=== PATIENT | male | born 1985 | race Caucasian/White ===

== ENCOUNTER → 2017-08-16 | Outpatient (CLI) | payer OTHER ==
[2017-08-16 10:57] LABS: EKG EKG PERFORMED
[2017-08-16 11:34] LABS: ALT 83 U/L (21-72); AST 37 U/L (17-59); Alkaline Phosphatase 47 U/L (38-126); Anion Gap 9 mmol/L; Blood Urea Nitrogen 15 mg/dL (9-20); Carbon Dioxide 26 mmol/L (22-30); Chloride 107 mmol/L (98-107); Cholesterol 75 mg/dL (<200); Glucose 91 mg/dL (74-99); HDL Cholesterol 49 mg/dL (40-60); Non-African American GFR(MDRD) >60 (>60 ml/min/1.73 sqM); Potassium 4.6 mmol/L (3.5-5.1); Sodium 142 mmol/L (137-145); Total Bilirubin 0.5 mg/dL (0.2-1.3); Total Protein 6.7 g/dL (6.3-8.2)
[2017-08-16 12:08] LABS: Basophils % (A) 1 %; CH 30.9; CHCM 34.4; Eosinophils # (A) 0.2 k/uL (0-0.7); Eosinophils % (A) 3 %; HCT 45.3 % (39.0-53.0); HDW 2.89; HGB 15.2 gm/dL (13.0-17.5); Luc # (Auto) 0.12; Luc % (Auto) 2; Lymphocytes # (A) 1.4 k/uL (1.0-4.8); Lymphocytes % (A) 27 %; MCH 30.3 pg (25.0-35.0); MCHC 33.6 g/dL (31.0-37.0); MCV 90.2 fL (80.0-100.0); Mean Platelet Volume 6.6; Monocytes # (A) 0.3 k/uL (0-1.0); Monocytes % (A) 6 %; Neutrophils # (A) 3.2 k/uL (1.3-7.7); Neutrophils % (A) 61 %; RBC 5.02 m/uL (4.30-5.90); RDW 13.7 % (11.5-15.5); WBC 5.3 k/uL (3.8-10.6); WBC (Perox) 5.76
[2017-08-16 12:14] LABS: Appearance,Urine Clear (Clear); Bilirubin,Urine Negative (Negative); Glucose,Urine (UA) Negative (Negative); Ketones,Urine Negative (Negative); Leukocyte Esterase,Urine Negative (Negative); Nitrite,Urine Negative (Negative); PH, Urine 5.5 (5.0-8.0); Protein,Urine Negative (Negative); Specific Gravity,Urine 1.019 (1.001-1.035); UA Billing (MACRO vs. MICRO) CHEM; Urobilinogen,Urine <2.0 mg/dL (<2.0)
== END | disposition home or self-care (01) ==
LOC: LABWHC1 10:46
PROVIDERS: ATTEND Psychiatry & Neurology Psychiatry
DX: Z00.00 Encounter for general adult medical examination without abnormal findings (principal); R53.83 Other fatigue; R03.0 Elevated blood-pressure reading, without diagnosis of hypertension
CPT/HCPCS: 36415; 80053; 80061; 81003; 83036; 84443; 85025; 93005

== ENCOUNTER 2017-12-20 22:24 | Emergency (ER) | payer OTHER ==
[2017-12-20 22:29] VITALS: RESP 20
[2017-12-20] MEDS ORDERED: IBUPROFEN 600 MG TAB PO STA (22:46)
[2017-12-20] MEDS ORDERED: ACETAMINOPHEN TAB 500 MG TAB PO STA (22:46)
--- NOTE | 2017-12-20 23:03 | XR ---
EXAMINATION TYPE: XR chest 2V DATE OF EXAM: 12/20/2017 COMPARISON: NONE HISTORY: Difficulty breathing TECHNIQUE: Frontal and lateral views of the chest are obtained. FINDINGS: Heart and mediastinum are normal. Lungs are clear. Diaphragm is normal. Bony thorax is int act. Pulmonary vascularity is normal. IMPRESSION: Normal chest
--- NOTE | 2017-12-20 23:21 | ED ---
General Adult HPI - General Chief complaint: Fever Stated complaint: Cough Time Seen by Provider: 12/20/17 22:49 Source: patient, family, RN notes reviewed, old records reviewed Mode of arrival: ambulatory Limitations: no limitations - History of Present Illness Initial comments: This is a 32-year-old male to the ER for evaluation is patient presents ER for evaluation regarding cough and congestion sore throat fever. Patient has no significant medical history takes no medications. Patient does admit to smoking.Miscarriage shortness of breath. Patient denies sick contacts or travel history. No significant body aches or pains - Related Data Home Medications Medication Instructions Recorded Confirmed Divalproex [Depakote] 250 mg PO TID 12/20/17 12/20/17 QUEtiapine XR [SEROquel XR] 150 mg PO HS 12/20/17 12/20/17 Previous Rx's Medication Instructions Recorded Azithromycin [Zithromax Z-pack] 0 mg PO DIRECTED #1 pack 12/20/17 Benzonatate [Tessalon Perles] 100 mg PO TID PRN #15 capsule 12/20/17 Naproxen [Naprosyn] 500 mg PO Q12HR PRN #30 tab 12/20/17 Allergies Allergy/AdvReac Type Severity Reaction Status Date / Time No Known Allergies Allergy Verified 12/20/17 23:02 Review of Systems ROS Statement: Those systems with pertinent positive or pertinent negative responses have been documented in the HPI. ROS Other: All systems not noted in ROS Statement are negative. Past Medical History Past Medical History: No Reported History History of Any Multi-Drug Resistant Organisms: None Reported Past Surgical History: No Surgical Hx Reported Past Psychological History: Anxiety, Depression, PTSD Smoking Status: Never smoker Past Alcohol Use History: Occasional Past Drug Use History: None Reported General Exam Limitations: no limitations General appearance: alert, in no apparent distress Head exam: Present: atraumatic, normocephalic, normal inspection Eye exam: Present: normal appearance, PERRL, EOMI. Absent: scleral icterus, conjunctival injection, periorbital swelling ENT exam: Present: normal exam, mucous membranes moist Neck exam: Present: normal inspection. Absent: tenderness, meningismus, lymphadenopathy Respiratory exam: Present: normal lung sounds bilaterally. Absent: respiratory distress, wheezes, rales, rhonchi, stridor Cardiovascular Exam: Present: regular rate, normal rhythm, normal heart sounds. Absent: systolic murmur, diastolic murmur, rubs, gallop, clicks GI/Abdominal exam: Present: soft, normal bowel sounds. Absent: distended, tenderness, guarding, rebound, rigid Extremities exam: Present: normal inspection, full ROM, normal capillary refill. Absent: tenderness, pedal edema, joint swelling, calf tenderness Back exam: Present: normal inspection Neurological exam: Present: alert, oriented X3, CN II-XII intact Psychiatric exam: Present: normal affect, normal mood Skin exam: Present: warm, dry, intact, normal color. Absent: rash Course Vital Signs 12/20/17 12/20/17 12/20/17 22:25 23:34 23:43 Temperature 102.7 F H Pulse Rate 105 H 104 H 100 Respiratory 20 Rate Blood Pressure 138/69 O2 Sat by Pulse 97 Oximetry 12/20/17 23:45 Temperature 101.2 F H Pulse Rate 97 Respiratory 20 Rate Blood Pressure 128/66 O2 Sat by Pulse 97 Oximetry Medical Decision Making - Medical Decision Making 32 male the ER for evaluation of fever, positive bronchitis, x-ray negative for pneumonia flu negative. Patient will be given outpatient fever control - Lab Data Lab Results 12/20/17 Range/Units 22:30 Influenza Type A RNA Not Detected (Not Detectd) Influenza Type B (PCR) Not Detected (Not Detectd) - Radiology Data Radiology results: report reviewed (Chest x-rays negative for acute disease), image reviewed Disposition Clinical Impression: Influenza, Fever, Acute bronchitis Disposition: HOME SELF-CARE Condition: Good Instructions: Fever in Adults (ED), Acute Bronchitis (ED) Prescriptions: Azithromycin [Zithromax Z-pack] 0 mg PO DIRECTED #1 pack Benzonatate [Tessalon Perles] 100 mg PO TID PRN #15 capsule PRN Reason: Cough Naproxen [Naprosyn] 500 mg PO Q12HR PRN #30 tab PRN Reason: Pain Referrals: Franco Irizarry MD [Primary Care Provider] - 1-2 days
[2017-12-20] MEDS ORDERED: AZITHROMYCIN 500 MG TAB PO STA (23:23)
[2017-12-20] MEDS ORDERED: IPRATROPIUM-ALBUTEROL 3 ML NEB INHALATION STA (23:23)
[2017-12-20 23:47] VITALS: BP 128/66; PULSE 97; TEMP 101.2
== END 2017-12-20 23:47 | disposition home or self-care (01) ==
LOC: EC 22:24
DX: J11.1 Influenza due to unidentified influenza virus with other respiratory manifestations (principal); F32.9 Major depressive disorder, single episode, unspecified; F17.200 Nicotine dependence, unspecified, uncomplicated; Z79.899 Other long term (current) drug therapy
CPT/HCPCS: 71046; 87502; 94640; 99284

== ENCOUNTER 2020-09-20 11:17 | Emergency (ER) | payer OTHER ==
[2020-09-20 11:26] VITALS: BP 135/88; PULSE 76; RESP 18; TEMP 98.3
[2020-09-20] MEDS ORDERED: HYDROcodone/APAP 7.5-325MG 1 EACH TAB PO ONE (11:42)
[2020-09-20] MEDS ORDERED: IBUPROFEN 800 MG TAB PO STA (11:42)
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
[2020-09-20] MEDS ORDERED: ACET/COD 300 MG/30 MG STARTER PACK 6 TAB BTL PO STA (13:12)
== END 2020-09-20 13:28 | disposition home or self-care (01) ==
LOC: EC 11:17
DX: M51.26 Other intervertebral disc displacement, lumbar region (principal); S39.012A Strain of muscle, fascia and tendon of lower back, initial encounter; Z79.899 Other long term (current) drug therapy; V47.5XXA Car driver injured in collision with fixed or stationary object in traffic accident, initial encounter; Y92.410 Unspecified street and highway as the place of occurrence of the external cause
CPT/HCPCS: 72131; 99284

== ENCOUNTER 2021-03-22 05:02 | Emergency (ER) | payer OTHER ==
[2021-03-22 05:09] VITALS: TEMP 98.2
[2021-03-22] MEDS ORDERED: HYDROmorphone 0.5 MG/0.5 ML SYRINGE IVP STA (05:24)
[2021-03-22] MEDS ORDERED: SODIUM CHLORIDE 0.9% 500 ML 500 ML IV STA (05:24)
[2021-03-22 05:52] LABS: Basophils % (A) 1 %; Eosinophils # (A) 0.2 k/uL (0-0.7); Eosinophils % (A) 3 %; HCT 46.4 % (39.0-53.0); HGB 15.9 gm/dL (13.0-17.5); Lymphocytes # (A) 1.8 k/uL (1.0-4.8); Lymphocytes % (A) 28 %; MCH 30.4 pg (25.0-35.0); MCHC 34.3 g/dL (31.0-37.0); MCV 88.6 fL (80.0-100.0); Mean Platelet Volume 7.1; Monocytes # (A) 0.4 k/uL (0-1.0); Monocytes % (A) 7 %; Neutrophils # (A) 3.8 k/uL (1.3-7.7); Neutrophils % (A) 61 %; Platelet Count 127 k/uL (150-450); RBC 5.24 m/uL (4.30-5.90); RDW 13.2 % (11.5-15.5); WBC 6.3 k/uL (3.8-10.6)
[2021-03-22 06:10] LABS: Appearance,Urine Clear (Clear); Bilirubin,Urine Negative (Negative); Blood,Urine Negative (Negative); Color,Urine Yellow; Glucose,Urine (UA) Negative (Negative); Ketones,Urine Negative (Negative); Leukocyte Esterase,Urine Negative (Negative); Nitrite,Urine Negative (Negative); PH, Urine 5.5 (5.0-8.0); Protein,Urine Negative (Negative); Specific Gravity,Urine 1.026 (1.001-1.035); Urobilinogen,Urine <2.0 mg/dL (<2.0)
[2021-03-22 06:14] LABS: ALT 80 U/L (4-49); African American GFR (CKD) >90 (>60 ml/min/1.73 sqM); Albumin 4.4 g/dL (3.5-5.0); Amylase 51 U/L (30-110); Anion Gap 8 mmol/L; Blood Urea Nitrogen 18 mg/dL (9-20); C Reactive Protein 0.7 mg/dL (<1.0); Calcium 9.1 mg/dL (8.4-10.2); Carbon Dioxide 26 mmol/L (22-30); Chloride 104 mmol/L (98-107); Glucose 107 mg/dL (74-99); Lipase 104 U/L (23-300); Non-African American GFR(CKD) >90 (>60 ml/min/1.73 sqM); Sodium 138 mmol/L (137-145); Total Bilirubin 0.7 mg/dL (0.2-1.3)
[2021-03-22 06:29] LABS: AST 48 U/L (17-59); Alkaline Phosphatase 46 U/L (38-126); Potassium 4.6 mmol/L (3.5-5.1)
--- NOTE | 2021-03-22 07:02 | ED ---
Abdominal Pain HPI - General Chief Complaint: Abdominal Pain Stated Complaint: Abd Pain Time Seen by Provider: 03/22/21 05:13 Source: patient Mode of arrival: ambulatory Limitations: no limitations - History of Present Illness MD Complaint: abdominal pain Onset/Timin -: hour(s) Location: LUQ, RUQ, epigastric Radiation: none Migration to: no migration Severity: severe Quality: aching, sharp Consistency: constant Improves With: nothing Worsens With: nothing Associated Symptoms: denies other symptoms - Related Data Home Medications Medication Instructions Recorded Confirmed Divalproex Sodium [Depakote] 500 mg PO BID 09/20/20 03/22/21 Previous Rx's Medication Instructions Recorded Famotidine [Pepcid] 20 mg PO BID #14 tablet 03/22/21 Ondansetron Odt [Zofran ODT] 4 mg PO Q8HR PRN #10 tab 03/22/21 Allergies Allergy/AdvReac Type Severity Reaction Status Date / Time No Known Allergies Allergy Verified 03/22/21 06:59 Review of Systems ROS Statement: Those systems with pertinent positive or pertinent negative responses have been documented in the HPI. ROS Other: All systems not noted in ROS Statement are negative. Constitutional: Denies: fever, chills Respiratory: Denies: cough, dyspnea Cardiovascular: Denies: chest pain, palpitations Gastrointestinal: Reports: abdominal pain. Denies: nausea, vomiting, diarrhea, constipation Genitourinary: Denies: urgency, dysuria, frequency, hematuria, testicular pain, testicular mass Musculoskeletal: Denies: back pain Skin: Denies: rash Neurological: Denies: headache, weakness, numbness Past Medical History Past Medical History: No Reported History History of Any Multi-Drug Resistant Organisms: None Reported Past Surgical History: No Surgical Hx Reported Past Psychological History: Anxiety, Depression, PTSD Smoking Status: Never smoker Past Alcohol Use History: Occasional Past Drug Use History: None Reported General Exam Limitations: no limitations General appearance: alert, in no apparent distress Head exam: Present: atraumatic, normocephalic Eye exam: Present: normal appearance. Absent: scleral icterus, conjunctival injection ENT exam: Present: normal oropharynx Respiratory exam: Present: normal lung sounds bilaterally. Absent: respiratory distress, wheezes, rales, rhonchi, stridor Cardiovascular Exam: Present: regular rate, normal rhythm, normal heart sounds. Absent: systolic murmur, diastolic murmur, rubs, gallop GI/Abdominal exam: Present: soft, tenderness (there is mild epgastric and right upper quadrant tenderness). Absent: distended, guarding, rebound, rigid, organomegaly, mass Extremities exam: Present: normal inspection, normal capillary refill. Absent: pedal edema, calf tenderness Back exam: Present: normal inspection. Absent: CVA tenderness (R), CVA t enderness (L) Neurological exam: Present: alert Skin exam: Present: warm, dry, intact, normal color. Absent: rash Course Vital Signs 03/22/21 05:06 Temperature 98.2 F Pulse Rate 68 Respiratory 18 Rate Blood Pressure 152/99 O2 Sat by Pulse 98 Oximetry Medical Decision Making - Lab Data Result diagrams: 03/22/21 05:25 03/22/21 05:25 Lab Results 03/22/21 03/22/21 03/22/21 Range/Units 05:25 05:25 05:25 WBC 6.3 (3.8-10.6) k/uL RBC 5.24 (4.30-5.90) m/uL Hgb 15.9 (13.0-17.5) gm/dL Hct 46.4 (39.0-53.0) % MCV 88.6 (80.0-100.0) fL MCH 30.4 (25.0-35.0) pg MCHC 34.3 (31.0-37.0) g/dL RDW 13.2 (11.5-15.5) % Plt Count 127 L (150-450) k/uL MPV 7.1 Neutrophils % 61 % Lymphocytes % 28 % Monocytes % 7 % Eosinophils % 3 % Basophils % 1 % Neutrophils # 3.8 (1.3-7.7) k/uL Lymphocytes # 1.8 (1.0-4.8) k/uL Monocytes # 0.4 (0-1.0) k/uL Eosinophils # 0.2 (0-0.7) k/uL Basophils # 0.0 (0-0.2) k/uL Sodium 138 (137-145) mmol/L Potassium 4.6 (3.5-5.1) mmol/L Chloride 104 (98-107) mmol/L Carbon Dioxide 26 (22-30) mmol/L Anion Gap 8 mmol/L BUN 18 (9-20) mg/dL Creatinine 0.95 (0.66-1.25) mg/dL Est GFR (CKD-EPI)AfAm >90 (>60 ml/min/1.73 sqM) Est GFR (CKD-EPI)NonAf >90 (>60 ml/min/1.73 sqM) Glucose 107 H (74-99) mg/dL Calcium 9.1 (8.4-10.2) mg/dL Total Bilirubin 0.7 (0.2-1.3) mg/dL AST 48 (17-59) U/L ALT 80 H (4-49) U/L Alkaline Phosphatase 46 (38-126) U/L C-Reactive Protein 0.7 (<1.0) mg/dL Total Protein 7.0 (6.3-8.2) g/dL Albumin 4.4 (3.5-5.0) g/dL Amylase 51 (30-110) U/L Lipase 104 (23-300) U/L Urine Color Yellow Urine Appearance Clear (Clear) Urine pH 5.5 (5.0-8.0) Ur Specific [place] 1.026 (1.001-1.035) Urine Protein Negative (Negative) Urine Glucose (UA) Negative (Negative) Urine Ketones Negative (Negative) Urine Blood Negative (Negative) Urine Nitrite Negative (Negative) Urine Bilirubin Negative (Negative) Urine Urobilinogen <2.0 (<2.0) mg/dL Ur Leukocyte Esterase Negative (Negative) Disposition Clinical Impression: Abdominal pain Disposition: HOME SELF-CARE Condition: Good Instructions (If sedation given, give patient instructions): Abdominal Pain (ED) Prescriptions: Famotidine [Pepcid] 20 mg PO BID #14 tablet Ondansetron Odt [Zofran ODT] 4 mg PO Q8HR PRN #10 tab PRN Reason: Nausea Is patient prescribed a controlled substance at d/c from ED?: No Referrals: Franco Irizarry MD [Primary Care Provider] - 1-2 days
[2021-03-22 07:18] VITALS: BP 141/78; PULSE 63; RESP 16
== END 2021-03-22 07:10 | disposition home or self-care (01) ==
LOC: EC 05:02
DX: R10.13 Epigastric pain (principal); R10.11 Right upper quadrant pain; F32.9 Major depressive disorder, single episode, unspecified
CPT/HCPCS: 36415; 80053; 82150; 83690; 85025; 86140; 81003; 99284; 96374; J1170

== ENCOUNTER 2021-03-23 01:45 | Observation (INO) | payer OTHER ==
[2021-03-23] MEDS ORDERED: SODIUM CHLORIDE 0.9% 1,000 ML IV STA ×2 (01:53→03:46)
[2021-03-23] MEDS ORDERED: HYDROmorphone 0.5 MG/0.5 ML SYRINGE IVP STA ×2 (01:53→05:29)
[2021-03-23] MEDS ORDERED: ONDANSETRON 4 MG/2 ML VIAL IVP STA (01:53)
[2021-03-23] MEDS ORDERED: HYDROmorphone 1 MG/ML 1 ML SYRINGE IVP STA ×2 (02:36→03:45)
[2021-03-23 02:51] LABS: Basophils # (A) 0.1 k/uL (0-0.2); Basophils % (A) 1 %; Eosinophils # (A) 0.1 k/uL (0-0.7); Eosinophils % (A) 2 %; HCT 46.2 % (39.0-53.0); HGB 15.8 gm/dL (13.0-17.5); Lymphocytes # (A) 1.7 k/uL (1.0-4.8); Lymphocytes % (A) 24 %; MCH 30.3 pg (25.0-35.0); MCHC 34.1 g/dL (31.0-37.0); MCV 88.9 fL (80.0-100.0); Mean Platelet Volume 7.3; Monocytes # (A) 0.5 k/uL (0-1.0); Monocytes % (A) 8 %; Neutrophils # (A) 4.3 k/uL (1.3-7.7); Neutrophils % (A) 64 %; Platelet Count 186 k/uL (150-450); RDW 13.2 % (11.5-15.5); WBC 6.8 k/uL (3.8-10.6)
[2021-03-23 02:58] LABS: ALT 89 U/L (4-49); AST 54 U/L (17-59); African American GFR (CKD) >90 (>60 ml/min/1.73 sqM); Albumin 4.3 g/dL (3.5-5.0); Alkaline Phosphatase 58 U/L (38-126); Amylase 48 U/L (30-110); Anion Gap 9 mmol/L; Blood Urea Nitrogen 16 mg/dL (9-20); Calcium 9.3 mg/dL (8.4-10.2); Carbon Dioxide 27 mmol/L (22-30); Chloride 104 mmol/L (98-107); Glucose 93 mg/dL (74-99); Lipase 128 U/L (23-300); Non-African American GFR(CKD) >90 (>60 ml/min/1.73 sqM); Potassium 4.4 mmol/L (3.5-5.1); Sodium 140 mmol/L (137-145); Total Bilirubin 0.6 mg/dL (0.2-1.3); Total Protein 6.7 g/dL (6.3-8.2)
[2021-03-23 03:05] LABS: Appearance,Urine Clear (Clear); Bilirubin,Urine Negative (Negative); Blood,Urine Negative (Negative); Color,Urine Yellow; Glucose,Urine (UA) Negative (Negative); Ketones,Urine Negative (Negative); Leukocyte Esterase,Urine Negative (Negative); Nitrite,Urine Negative (Negative); Protein,Urine Negative (Negative); Specific Gravity,Urine 1.025 (1.001-1.035); Urobilinogen,Urine <2.0 mg/dL (<2.0)
--- NOTE | 2021-03-23 03:37 | CT ---
EXAM: CT Abdomen and Pelvis Without Intravenous Contrast CLINICAL HISTORY: ITS.REASON CT Reason: acute upper abdominal pain TECHNIQUE: Axial computed tomography images of the abdomen and pelvis without intravenous contrast. CTDI is 32.484 mGy and DLP is 1992 mGy-cm. This CT exam was performed using one or more of the following dose reduction techniques: automated exposure control, adjustment of the mA and/or kV according to patient size, and/or use of iterative reconstruction technique. COMPARISON: No relevant prior studies available. FINDINGS: Lung bases: No mass. No consolidation. ABDOMEN: Liver: Severe steatosis. Enlarged. Gallbladder and bile ducts: Slightly increased density in the lumen. Pancreas: No ductal dilation. Spleen: Unremarkable. Adrenals: Unremarkable. Kidneys and ureters: No obstructing stones. No hydronephrosis. Stomach and bowel: No bowel obstruction. No bowel wall thickening. PELVIS: Appendix: No evidence of appendicitis. Bladder: No stones. Reproductive: Unremarkable. ABDOMEN and PELVIS: Intraperitoneal space: Unremarkable. Bones/joints: No acute fractures. Soft tissues: Unremarkable. Vasculature: No abdominal aortic aneurysm. Lymph nodes: No enlarged lymph nodes. IMPRESSION: No acute findings. Hepatomegaly with severe steatosis. Questionable gallbladder sludge.
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
[2021-03-23] MEDS ORDERED: SODIUM CHLORIDE 0.9% 1,000 ML IV ONE (03:45)
[2021-03-23] MEDS ORDERED: NALOXONE 0.4 MG/ML 1 ML VIAL IV PRN (06:08)
[2021-03-23] MEDS: HYDROmorphone 1 MG/ML 1 ML SYRINGE IVP PRN ×6 (06:53→23:35)
[2021-03-23] MEDS: ONDANSETRON 4 MG/2 ML VIAL IVP PRN ×3 (07:03→17:00)
--- NOTE | 2021-03-23 08:07 | US ---
EXAMINATION TYPE: US abdomen limited DATE OF EXAM: 03/23/2021 COMPARISON: NONE CLINICAL HISTORY: attention RUQ. Pain exam limited due to body habitus. EXAM MEASUREMENTS: Liver Length: 18.9 cm Gallbladder Wall: .2 cm CBD: .4 cm Right Kidney: 12.1 x 4.6 x 4.4 cm Pancreas: Obscured by bowel gas Liver: Increased attenuation limited Gallbladder: mutiple stones seen Evidence for sonographic Howard's sign: Yes CBD: wnl Right Kidney: No hydronephrosis or masses seen IMPRESSION: 1. Moderate fatty infiltration of liver thyromegaly. 2. Cholelithiasis
[2021-03-23] MEDS: HYDROmorphone 0.5 MG/0.5 ML SYRINGE IVP PRN (08:33)
[2021-03-23] MEDS: DIVALPROEX 500 MG TABLET.DR PO SCH ×2 (08:33→21:42)
[2021-03-23] MEDS: FAMOTIDINE 20 MG TAB PO SCH ×2 (08:33→21:42)
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
[2021-03-23] MEDS ORDERED: PROCHLORPERAZINE INJ 10 MG/2 ML VIAL IVP PRN (17:49)
--- NOTE | 2021-03-23 18:56 | HP ---
HISTORY AND PHYSICAL CHIEF COMPLAINT: Abdominal pain for 2 to 3 days. HISTORY OF PRESENT ILLNESS: This is another admission for this 35-year-old white male. He started to have bilateral upper abdominal pain several days ago with bloating and some back pain. It grew steadily worse and he came to the emergency room. He vomited once in the emergency room. He has had no fever or chills. This started after eating a steak. REVIEW OF SYSTEMS: He has had no neurologic problems, difficulty with vision or hearing, chest pain, shortness of breath, hematemesis, melena, hematochezia, jaundice, hepatitis, renal failure, dysuria, frequency, urgency, diabetes, etc. Past medical history, family history, and personal and social histories are all otherwise unremarkable. He is on Depakote. He is NOT ALLERGIC TO ANY MEDICATION. He has had no surgery. He smokes a pack of cigarettes a day. PHYSICAL EXAMINATION: Blood pressure 171/91 with a pulse of 83, respirations of 34, and he is afebrile. In general he appeared to be overweight and multiply tattooed. Skin color is normal. Skin is warm and dry. Lymph nodes are not enlarged. Head, ears, eyes, nose, mouth and throat were normal. Neck veins were not distended. Thyroid was not enlarged. Chest was clear. Cardiac exam was normal. The abdomen was tender over the upper aspects. There was some bloating. There was no rebound tenderness and bowel sounds were heard. Extremities were normal. Neurologically he is intact. He is admitted to the hospital with the diagnosis of acute cholecystitis. PLAN: 1. Bedrest. 2. IV fluids. 3. N.p.o. 4. Surgery consult. MMODL / IJN: [id number] /
[2021-03-23] MEDS: METOCLOPRAMIDE 5 MG/ML 2 ML VIAL IVP SCH ×2 (20:46→23:35)
[2021-03-23] MEDS ORDERED: SENNOSIDES 8.6 MG TAB PO PRN (21:24)
[2021-03-24] MEDS: HYDROmorphone 1 MG/ML 1 ML SYRINGE IVP PRN ×6 (02:38→23:36)
[2021-03-24] MEDS: ONDANSETRON 4 MG/2 ML VIAL IVP PRN (02:38)
[2021-03-24] MEDS: METOCLOPRAMIDE 5 MG/ML 2 ML VIAL IVP SCH ×4 (05:21→23:36)
[2021-03-24] MEDS: DIVALPROEX 500 MG TABLET.DR PO SCH ×2 (08:51→21:02)
[2021-03-24] MEDS: FAMOTIDINE 20 MG TAB PO SCH ×2 (08:51→21:02)
--- NOTE | 2021-03-24 13:42 | P.PN ---
Subjective Progress Note Date: 03/24/21 CHIEF COMPLAINT: Abdominal pain HISTORY OF PRESENT ILLNESS: Surgical service following regards to patient's abdominal pain and cholelithiasis noted on ultrasound. He does report right upper quadrant and epigastric abdominal pain. Slightly improved since yesterday. He he is also having the nausea but the vomiting has resolved. Patient did report having a very hard small bowel movement this morning and is requesting a stool softener. He is currently on full liquid diet. Afebrile. WBC was 6.8 yesterday PHYSICAL EXAM: VITAL SIGNS: Reviewed. GENERAL: Well-developed in no acute distress. HEENT: No sclera icterus. Extraocular movements grossly intact. Moist buccal mucosa. Head is atraumatic, normocephalic. ABDOMEN: Soft. Nondistended. Tender right upper quadrant and epigastric area NEUROLOGIC: Alert and oriented. Cranial nerves II through XII grossly intact. ASSESSMENT: 1. Right upper quadrant and epigastric abdominal pain 2. Symptomatic cholelithiasis PLAN: -Patient scheduled for laparoscopic cholecystectomy on , 03/25/[address] hills -Nothing by mouth after midnight -Continue pain medication and antiemetics as needed -Colace added for constipation Physician Fish Farm Manager note has been reviewed by physician. Signing provider agrees with the documented findings, assessment, and plan of care. Objective - Vital Signs Vital signs: Vital Signs Temp 98.2 F 03/24/21 07:00 Pulse 58 L 03/24/21 07:00 Resp 18 03/24/21 08:00 BP 138/82 03/24/21 07:00 Pulse Ox 96 03/24/21 07:00 Intake & Output 03/23/21 03/24/21 03/24/21 18:59 06:59 18:59 Weight 136.078 kg Other: Voiding Method Toilet Toilet # Voids 0 - Labs CBC & Chem 7: 03/23/21 02:22 03/23/21 02:22
[2021-03-24] MEDS ORDERED: LIDOCAINE 1% (10MG/ML) FOR IV START INTRADERMA PRN (14:58)
[2021-03-24] MEDS: DOCUSATE 100 MG CAP PO SCH ×2 (16:44→20:42)
[2021-03-24] MEDS: LACTATED RINGERS 1,000 ML IV SCH (16:45)
[2021-03-24] MEDS ORDERED: ACETAMINOPHEN TAB 325 MG TAB PO PRN (17:36)
--- NOTE | 2021-03-24 18:00 | PN ---
PROGRESS NOTE DATE OF SERVICE: 03/24/2021 CHIEF COMPLAINT: Cholecystitis. HISTORY OF PRESENT ILLNESS: This gentleman is doing well. He has had a little trouble with constipation. Surgery is planned for . PHYSICAL EXAMINATION: His abdomen is still slightly distended and slightly tender. Chest is clear. Cardiac exam is normal. He is afebrile. IMPRESSION: 1. Cholecystitis. 2. Constipation. PLAN: Surgery tomorrow. MMODL / IJN: [id number] /
[2021-03-24] MEDS: HYDROmorphone 0.5 MG/0.5 ML SYRINGE IVP PRN (21:02)
[2021-03-25] MEDS: HYDROmorphone 1 MG/ML 1 ML SYRINGE IVP PRN ×5 (05:04→23:05)
[2021-03-25] MEDS: METOCLOPRAMIDE 5 MG/ML 2 ML VIAL IVP SCH ×4 (05:04→23:04)
[2021-03-25 06:20] LABS: Basophils % (A) 0 %; Eosinophils # (A) 0.1 k/uL (0-0.7); Eosinophils % (A) 1 %; HCT 43.1 % (39.0-53.0); HGB 15.1 gm/dL (13.0-17.5); Lymphocytes # (A) 1.6 k/uL (1.0-4.8); Lymphocytes % (A) 25 %; MCH 31.2 pg (25.0-35.0); MCHC 35.1 g/dL (31.0-37.0); MCV 88.8 fL (80.0-100.0); Mean Platelet Volume 7.3; Monocytes # (A) 0.5 k/uL (0-1.0); Monocytes % (A) 8 %; Neutrophils % (A) 64 %; Platelet Count 142 k/uL (150-450); RBC 4.86 m/uL (4.30-5.90); RDW 13.6 % (11.5-15.5); WBC 6.3 k/uL (3.8-10.6)
[2021-03-25 06:32] LABS: ALT 109 U/L (4-49); AST 64 U/L (17-59); African American GFR (CKD) >90 (>60 ml/min/1.73 sqM); Albumin 3.6 g/dL (3.5-5.0); Albumin/Globulin Ratio 1.5; Alkaline Phosphatase 50 U/L (38-126); Anion Gap 7 mmol/L; Blood Urea Nitrogen 8 mg/dL (9-20); Calcium 9.1 mg/dL (8.4-10.2); Carbon Dioxide 31 mmol/L (22-30); Chloride 99 mmol/L (98-107); Globulin 2.4 g/dL; Glucose 86 mg/dL (74-99); Non-African American GFR(CKD) >90 (>60 ml/min/1.73 sqM); Potassium 4.1 mmol/L (3.5-5.1); Sodium 137 mmol/L (137-145); Total Bilirubin 1.2 mg/dL (0.2-1.3)
[2021-03-25] MEDS ORDERED: IV FLUID CONTINUATION 1,000 ML IV ONE ×2 (07:45)
[2021-03-25] MEDS ORDERED: DEXAMETHASONE SOD PHOSPHATE 4 MG/ML 1 ML VIAL IV ONE (08:25)
[2021-03-25] MEDS ORDERED: ONDANSETRON 4 MG/2 ML VIAL IVP ONE (08:25)
[2021-03-25] MEDS ORDERED: BUPIVACAINE (PF) 0.25% 30 ML VIAL SQ ONE (09:27)
[2021-03-25] MEDS ORDERED: ceFAZolin 3 GM in SODIUM CHLORIDE 0.9% 100 ML IVPB ONE (09:30)
[2021-03-25] MEDS: HEPARIN SODIUM,PORCINE/PF 5,000 UNIT/0.5 ML SYRINGE SQ STA ×2 (09:34→13:40)
[2021-03-25] MEDS ORDERED: ROCURONIUM 10 MG/ML (5 ML VIAL) IV ONE (09:51)
[2021-03-25] MEDS ORDERED: PROPOFOL 10 MG/ML 20 ML VIAL IV ONE (09:51)
[2021-03-25] MEDS ORDERED: HYDROmorphone (PF) 1 MG/ML ONE (09:51)
[2021-03-25] MEDS ORDERED: SUCCINYLCHOLINE CHLORIDE VIAL 200 MG/10 ML VIAL IV ONE (09:51)
[2021-03-25] MEDS ORDERED: GLYCOPYRROLATE 0.2 MG/ML 2 ML VIAL ONE (09:51)
[2021-03-25] MEDS ORDERED: NEOSTIGMINE 1 MG/ML 10 ML VIAL ONE (09:51)
[2021-03-25] MEDS ORDERED: LIDOCAINE 1% INJ 10MG/ML (20 ML MDV) ONE (09:51)
[2021-03-25] MEDS ORDERED: MIDAZOLAM 2 MG/2 ML VIAL ONE (09:51)
[2021-03-25] MEDS ORDERED: fentaNYL (PF) 50 MCG/ML 2 ML AMP ONE (09:51)
--- NOTE | 2021-03-25 11:07 | P.OP ---
Date of Procedure: 03/25/21 Preoperative Diagnosis: Cholecystitis Cholelithiasis Postoperative Diagnosis: Same Procedure(s) Performed: Laparoscopic cholecystectomy Anesthesia: ELIANA Surgeon: Los Jimenez Estimated Blood Loss (ml): 5 Pathology: other (All bladderallg) Condition: stable Disposition: PACU Description of Procedure: The patient was placed on the operating table. The patient received a general endotracheal tube anesthesia. The patients abdomen was prepped and draped in the usual sterile fashion. Through an infraumbilical stab incision, the fascia of the anterior abdominal wall was grasped with a pair of Kochers and then the Veress needle was placed in the peritoneal cavity. Position of the Veress needle was confirmed with positive drop test. The abdomen was then insufflated. After adequate insufflation, the 10 mm trocar was placed in the peritoneal cavity. Following this the laparoscope was placed in the peritoneal cavity. The patient was placed in the head-up, right side up position and then a 5 mm trocar was placed in the right lateral and right subcostal position under direct visualization. A 8 mm trocar was placed in the epigastric position. The gallbladder was grasped in the fundus and infundibulum. Traction on the gallbladder was placed in the lateral and the cephalad positions. The triangle of Calot was visualized.. The cystic duct was bluntly dissected until the union of the cystic duct and common bile duct was seen. A critical view of safety was achieved. The cystic duct was then divided and sealed with the Harmonic scissors. A PDS Endoloop was then placed throughout the cystic duct stump. The cystic artery divided and sealed with the Harmonic scissors. The gallbladder was then removed from the liver bed using Harmonic scissors. The gallbladder was then extracted through the epigastric port site. Operative field was checked for any bleeding spots and Harmonic scissors was used to coagulate the liver bed. The abdomen was irrigated. The trocars were removed. The skin was closed using interrupted 3-0 Vicryl suture. Dermabond dressing were applied. The patient tolerated the procedure well.
[2021-03-25] MEDS: LACTATED RINGERS 1,000 ML IV SCH (11:40)
[2021-03-25] MEDS: HYDROmorphone 0.5 MG/0.5 ML SYRINGE IVP PRN (11:41)
[2021-03-25] MEDS: FAMOTIDINE 20 MG TAB PO SCH ×2 (13:40→20:02)
[2021-03-25] MEDS: DIVALPROEX 500 MG TABLET.DR PO SCH ×3 (13:40→20:02)
[2021-03-25] MEDS: DOCUSATE 100 MG CAP PO SCH ×2 (13:40→20:02)
--- NOTE | 2021-03-25 17:44 | PN ---
PROGRESS NOTE DATE OF SERVICE: 03/25/2021 CHIEF COMPLAINT: Abdominal pain and cholecystitis. HISTORY OF PRESENT ILLNESS: This gentleman is stable and going to the operating room today. PHYSICAL EXAMINATION: He is afebrile. Chest is clear. Cardiac exam is normal. The abdomen is protuberant. IMPRESSION: Cholecystitis and cholelithiasis. PLAN: Surgery today. MMODL / IJN: [id number] /
[2021-03-26] MEDS: HYDROmorphone 1 MG/ML 1 ML SYRINGE IVP PRN ×3 (02:19→08:19)
[2021-03-26] MEDS: METOCLOPRAMIDE 5 MG/ML 2 ML VIAL IVP SCH (05:18)
[2021-03-26 07:58] VITALS: BP 128/82; PULSE 67; RESP 16; TEMP 98.5
[2021-03-26] MEDS ORDERED: HYDROcodone/APAP 5-325MG 1 EACH TAB PO PRN (08:16)
[2021-03-26] MEDS: DIVALPROEX 500 MG TABLET.DR PO SCH (08:16)
[2021-03-26] MEDS: DOCUSATE 100 MG CAP PO SCH (08:16)
[2021-03-26] MEDS: FAMOTIDINE 20 MG TAB PO SCH (08:16)
--- NOTE | 2021-03-26 11:14 | P.PN ---
Subjective Progress Note Date: 03/26/21 CHIEF COMPLAINT: Abdominal pain HISTORY OF PRESENT ILLNESS: Patient is postop day #1 status post laparoscopic cholecystectomy. He reports this pain is controlled. He is passing casts. He is tolerating diet. Denies any nausea or vomiting. He is urinating without difficulty. He is ambulating. He is afebrile. PHYSICAL EXAM: VITAL SIGNS: Reviewed. GENERAL: Well-developed in no acute distress. HEENT: No sclera icterus. Extraocular movements grossly intact. Moist buccal mucosa. Head is atraumatic, normocephalic. ABDOMEN: Soft. Nondistended. Incision sites clean dry and intact NEUROLOGIC: Alert and oriented. Cranial nerves II through XII grossly intact. ASSESSMENT: 1. Cholecystitis status post laparoscopic cholecystectomy 2. Cholelithiasis PLAN: -Patient is stable from surgical standpoint for discharge Physician Airplane Pilot note has been reviewed by physician. Signing provider agrees with the documented findings, assessment, and plan of care. Objective - Vital Signs Vital signs: Vital Signs Temp 98.5 F 03/26/21 07:00 Pulse 67 03/26/21 07:00 Resp 16 03/26/21 07:00 BP 128/82 03/26/21 07:00 Pulse Ox 95 03/26/21 07:00 Intake & Output 03/25/21 03/26/21 03/26/21 18:59 06:59 18:59 Intake Total 950 100 Output Total 10 Balance 940 100 Intake: IV 950 Oral 100 Output: Estimated Blood Loss 10 Other: Voiding Method Toilet Toilet # Voids 2 2 - Labs CBC & Chem 7: 03/25/21 04:58 03/25/21 04:58
--- NOTE | 2021-03-26 18:37 | DS ---
DISCHARGE SUMMARY CHIEF COMPLAINT: Abdominal pain. HISTORY OF PRESENT ILLNESS AND PHYSICAL EXAMINATION: Details of this man's history and physical can be found in the initial workup. LABORATORY STUDIES: While he was in the while, he had laboratory studies, details of which can be found in the laboratory section of his chart. COURSE IN THE HOSPITAL: After admission, he was placed on bedrest and started on intravenous fluids. He was seen by General Surgery. He was scheduled for cholecystectomy on March 25 which was carried out without incident. He did well. He was doing well and it was felt he could go home on March 26. FINAL DIAGNOSES: Acute cholecystitis and cholelithiasis. OPERATIONS: Cholecystectomy. CONSULTATION: General surgery. He is improved. MMODL / IJN: [id number] /
== END 2021-03-26 13:35 | disposition home or self-care (01) ==
LOC: EC 01:45 → 6NMEDSUR 06:08
PROVIDERS: ADMIT Family Medicine; ATTEND Family Medicine
DX: K80.12 Calculus of gallbladder with acute and chronic cholecystitis without obstruction (principal); R61 Generalized hyperhidrosis; F43.10 Post-traumatic stress disorder, unspecified; F32.9 Major depressive disorder, single episode, unspecified; F41.9 Anxiety disorder, unspecified; K59.00 Constipation, unspecified; F17.210 Nicotine dependence, cigarettes, uncomplicated; Z79.899 Other long term (current) drug therapy; Z20.822 Contact with and (suspected) exposure to COVID-19
CPT/HCPCS: 96376; 96361; 96374; 96375; 99285; 36415; 93005; 88304; 80053 ×2; 82150; 83690; 85025 ×2; 81003; 87636; 76705; 74176; 47562; G0378 ×4; J2250; J0330; J0780; J1100; J2710; J2765 ×4; J0690; J2405 ×3; J2001; J3010; J1170 ×7; J2704; J1644

== ENCOUNTER 2021-12-30 13:10 | Emergency (ER) | payer OTHER ==
[2021-12-30 13:18] VITALS: RESP 18; TEMP 98.1
[2021-12-30] MEDS ORDERED: HYDROmorphone 0.5 MG/0.5 ML SYRINGE IVP STA ×3 (15:15→17:11)
[2021-12-30] MEDS ORDERED: ONDANSETRON 4 MG/2 ML VIAL IVP STA (15:15)
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
[2021-12-30 15:31] LABS: Basophils % (A) 0 %; Eosinophils # (A) 0.1 k/uL (0-0.7); Eosinophils % (A) 1 %; HCT 46.8 % (39.0-53.0); HGB 16.3 gm/dL (13.0-17.5); Lymphocytes # (A) 0.8 k/uL (1.0-4.8); Lymphocytes % (A) 8 %; MCH 31.9 pg (25.0-35.0); MCHC 34.8 g/dL (31.0-37.0); MCV 91.4 fL (80.0-100.0); Monocytes # (A) 0.4 k/uL (0-1.0); Monocytes % (A) 4 %; Neutrophils # (A) 8.5 k/uL (1.3-7.7); Neutrophils % (A) 86 %; Platelet Count 175 k/uL (150-450); RBC 5.12 m/uL (4.30-5.90); RDW 13.7 % (11.5-15.5); WBC 9.9 k/uL (3.8-10.6)
[2021-12-30 15:34] LABS: ALT 104 U/L (4-49); AST 51 U/L (17-59); African American GFR (CKD) >90 (>60 ml/min/1.73 sqM); Albumin 4.2 g/dL (3.5-5.0); Alkaline Phosphatase 61 U/L (38-126); Anion Gap 6 mmol/L; Blood Urea Nitrogen 15 mg/dL (9-20); Calcium 9.3 mg/dL (8.4-10.2); Carbon Dioxide 26 mmol/L (22-30); Chloride 108 mmol/L (98-107); Glucose 131 mg/dL (74-99); Lipase 379 U/L (23-300); Magnesium 1.8 mg/dL (1.6-2.3); Non-African American GFR(CKD) 88 (>60 ml/min/1.73 sqM); Potassium 4.3 mmol/L (3.5-5.1); Sodium 140 mmol/L (137-145); Total Bilirubin 0.9 mg/dL (0.2-1.3); Total Protein 6.7 g/dL (6.3-8.2)
[2021-12-30 15:39] LABS: INR 0.9 (<1.2); Partial Thromboplastin Time 24.5 sec (22.0-30.0); Prothrombin Time 10.3 sec (9.0-12.0)
[2021-12-30] MEDS ORDERED: MAG HYDROX/AL HYDROX/SIMETH 30 ML, HYOSCYAMINE ELIXIR 10 ML, LIDOCAINE VISCOUS 2% 10 ML PO STA ×3 (16:20)
--- NOTE | 2021-12-30 16:26 | CT ---
EXAMINATION TYPE: CT abdomen pelvis w con DATE OF EXAM: 12/30/2021 COMPARISON: CT 03/23/2021 HISTORY: Epigastric abdominal pain. CT DLP: 2976.4 mGycm Automated exposure control for dose reduction was used. TECHNIQUE: Helical acquisition of images from the lung bases through the pelvis have been completed. CONTRAST: Performed without Oral Contrast and with IV Contrast, patient injected with 100ml mL of Isovue 300. FINDINGS: LUNG BASES: No significant abnormality is appreciated, minimal dependent atelectatic change. AORTA: No significant abnormality is appreciated. LIVER/GB: Liver shows low attenuation likely due to hepatic steatosis. There is a gallstone present w ithin a contracted gallbladder. PANCREAS: No significant abnormality is seen. SPLEEN: No significant abnormality is seen. ADRENALS: No significant abnormality is seen. KIDNEYS: Cortical cyst on the right anteriorly shows a similar appearance to prior exam. REPRODUCTIVE ORGANS: No significant abnormality is seen BOWEL: No significant abnormality is seen. No evident appendicitis. FREE AIR: No Free Air visible. ASCITES: None visible. PELVIC ADENOPATHY: None visualized. RETROPERITONEAL ADENOPATHY: No Retroperitoneal Adenopathy visible. URINARY BLADDER: No significant abnormality is seen. OSSEOUS STRUCTURES: No significant abnormality is seen. IMPRESSION: HEPATIC STEATOSIS, CHOLELITHIASIS
[2021-12-30 17:55] VITALS: BP 152/86; PULSE 58
== END 2021-12-30 17:55 | disposition home or self-care (01) ==
LOC: EC 13:10
DX: R10.13 Epigastric pain (principal); F41.9 Anxiety disorder, unspecified; F32.A Depression, unspecified; F43.10 Post-traumatic stress disorder, unspecified; F12.90 Cannabis use, unspecified, uncomplicated
CPT/HCPCS: 99284; 96374; 96375; 96376 ×2; 36415; 80053; 83690; 83735; 85025; 85610; 85730; 74177; J2405; J1170; Q9967; 93005

== ENCOUNTER 2022-01-01 14:38 | Observation (INO) | payer OTHER ==
[2022-01-01] MEDS ORDERED: RX INFO: IV CONTRAST WAS GIVEN 1 EACH MISC MISCELLANE PRN (15:38)
[2022-01-01] MEDS ORDERED: SODIUM CHLORIDE 0.9% 1,000 ML IV STA (15:38)
[2022-01-01] MEDS ORDERED: HYDROmorphone 1 MG/ML 1 ML SYRINGE IVP STA ×2 (16:02→18:17)
[2022-01-01] MEDS ORDERED: CAPSAICIN 0.025% CREAM 60 GM TUBE TOPICAL STA (16:02)
[2022-01-01] MEDS ORDERED: ONDANSETRON 4 MG/2 ML VIAL IVP STA (16:02)
[2022-01-01 16:09] LABS: ALT 76 U/L (4-49); AST 37 U/L (17-59); African American GFR (CKD) >90 (>60 ml/min/1.73 sqM); Albumin 4.4 g/dL (3.5-5.0); Alkaline Phosphatase 56 U/L (38-126); Anion Gap 9 mmol/L; Blood Urea Nitrogen 14 mg/dL (9-20); Calcium 9.8 mg/dL (8.4-10.2); Carbon Dioxide 25 mmol/L (22-30); Chloride 102 mmol/L (98-107); Glucose 106 mg/dL (74-99); Lipase 524 U/L (23-300); Magnesium 1.9 mg/dL (1.6-2.3); Non-African American GFR(CKD) 82 (>60 ml/min/1.73 sqM); Potassium 3.8 mmol/L (3.5-5.1); Sodium 136 mmol/L (137-145); Total Bilirubin 1.2 mg/dL (0.2-1.3); Total Protein 7.1 g/dL (6.3-8.2)
[2022-01-01 16:10] LABS: Basophils % (A) 0 %; Eosinophils % (A) 1 %; HCT 46.4 % (39.0-53.0); HGB 16.8 gm/dL (13.0-17.5); Hyperchromasia Slight; Lymphocytes # (A) 1.4 k/uL (1.0-4.8); Lymphocytes % (A) 17 %; MCH 32.2 pg (25.0-35.0); MCHC 36.2 g/dL (31.0-37.0); MCV 88.9 fL (80.0-100.0); Mean Platelet Volume 6.8; Monocytes # (A) 0.6 k/uL (0-1.0); Monocytes % (A) 7 %; Neutrophils # (A) 6.1 k/uL (1.3-7.7); Neutrophils % (A) 73 %; Platelet Count 181 k/uL (150-450); RBC 5.22 m/uL (4.30-5.90); RDW 13.5 % (11.5-15.5); WBC 8.3 k/uL (3.8-10.6)
[2022-01-01 16:12] LABS: Partial Thromboplastin Time 24.5 sec (22.0-30.0); Prothrombin Time 10.9 sec (9.0-12.0)
--- NOTE | 2022-01-01 16:56 | CT ---
EXAMINATION TYPE: CT angio chest DATE OF EXAM: 01/01/2022 COMPARISON: None HISTORY: chest pain and pressure CT DLP: 1022 mGycm Automated exposure control for dose reduction was used. CONTRAST: Performed with IV Contrast, patient injected with 100 mL of Isovue 370. Images obtained from the thoracic inlet to the diaphragm with IV contrast. There are Three-D postproc essed images. The lungs are clear of consolidation. There is no pleural effusion. Heart size is normal. There is no pericardial effusion. There is no mediastinal adenopathy. There are no hilar masses. Thoracic aorta is intact. There is no aneurysm or dissection. There is normal contrast opacification of the pulmonary arteries. There are no filling defects. There is some fatty infiltration of the liver. There are clips from cholecystectomy. Thoracic spine is intact. There is no compression fracture. IMPRESSION: Negative exam. No evidence of pulmonary embolism. Fatty liver.
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
[2022-01-01] MEDS ORDERED: NALOXONE 0.4 MG/ML 1 ML VIAL IV PRN (18:27)
[2022-01-01] MEDS: SODIUM CHLORIDE 0.9% 1,000 ML IV SCH (18:48)
[2022-01-01] MEDS: PANTOPRAZOLE 40 MG/10 ML VIAL IV SCH (18:52)
[2022-01-01] MEDS: HYDROmorphone 1 MG/ML 1 ML SYRINGE IVP PRN (21:24)
[2022-01-02] MEDS: HYDROmorphone 1 MG/ML 1 ML SYRINGE IVP PRN ×5 (00:56→22:41)
[2022-01-02] MEDS: ONDANSETRON 4 MG/2 ML VIAL IVP PRN ×2 (06:28→19:42)
[2022-01-02] MEDS: SODIUM CHLORIDE 0.9% 1,000 ML IV SCH ×3 (06:30→13:59)
[2022-01-02] MEDS: PANTOPRAZOLE 40 MG/10 ML VIAL IV SCH (07:45)
[2022-01-02 09:03] LABS: Basophils # (A) 0.03 X 10*3/uL (0.00-0.10); Basophils % (A) 0.4 %; Eosinophils # (A) 0.09 X 10*3/uL (0.04-0.35); Eosinophils % (A) 1.1 %; HCT 45.4 % (39.6-50.0); HGB 15.9 g/dL (13.0-17.0); Immature Grans, Automated 0.4 %; Lymphocytes # (A) 1.57 X 10*3/uL (0.90-5.00); Lymphocytes % (A) 18.9 %; MCH 30.8 pg (27.0-32.0); Mean Platelet Volume 9.6 fL (9.5-12.2); Monocytes # (A) 0.85 X 10*3/uL (0.20-1.00); Monocytes % (A) 10.3 %; NRBC Per 100 WBC 0 /100 WBCS (0.0-0.0); Neutrophils # (A) 5.72 X 10*3/uL (1.80-7.70); Neutrophils % (A) 68.9 %; Platelet Count 178 X 10*3/uL (140-440); RBC 5.16 X 10*6/uL (4.40-5.60); WBC 8.29 X 10*3/uL (4.50-10.00)
[2022-01-02 09:07] LABS: African American GFR (CKD) 94.4 (60.0-200.0); Anion Gap 10.2 mmol/L (10.00-18.00); BUN/Creat Ratio 10.35 Ratio (12.00-20.00); Blood Urea Nitrogen 11.9 mg/dL (9.0-27.0); Calcium 8.8 mg/dL (8.7-10.3); Non-African American GFR(CKD) 81.4 (60.0-200.0); Potassium 3.9 mmol/L (3.5-5.5)
[2022-01-02] MEDS ORDERED: LORazepam 1 MG TAB PO PRN (11:52)
[2022-01-02] MEDS ORDERED: TEMAZEPAM 7.5 MG CAP PO PRN (11:53)
[2022-01-02] MEDS: HYDROcodone/APAP 5-325MG 1 EACH TAB PO PRN ×2 (12:50→19:42)
[2022-01-02] MEDS: IOPAMIDOL CONTRAST (ORAL USE) VIAL PO PRN ×2 (16:39→17:31)
[2022-01-02] MEDS: PANTOPRAZOLE 40 MG TABLET PO SCH (16:40)
--- NOTE | 2022-01-02 16:43 | HP ---
HISTORY AND PHYSICAL DATE OF SERVICE: 01/02/2022 CHIEF COMPLAINTS: Chest pain, some nausea. HISTORY OF PRESENT ILLNESS: This 36-year-old gentleman with a past medical history of no significant medical issues, being followed by Dr. Irizarry in the outpatient setting, was complaining of chest pain which was a pressure type of chest pain which started about 4 days ago. The patient also had some feeling in the upper abdomen and also some nausea without vomiting after the episode. The patient came to [facility] and was admitted for evaluation and treatment. Cardiology evaluation is in progress at this time. Initial troponins are negative. The lipase was found to be 524. PAST MEDICAL HISTORY: No history of previous cardiac disease. MEDICATIONS: None. ALLERGIES: NONE. FAMILY HISTORY: History of CABG in grandfather. SOCIAL HISTORY: No history of smoking. History of THC at least more than 10 joints per day. REVIEW OF SYSTEMS: Fourteen-point review of systems negative except as mentioned above. PHYSICAL EXAMINATION: Pulse is 55, blood pressure 120/85, respiration 18, temperature 97.6. HEENT: Conjunctivae normal. NECK: No jugular venous distention. CARDIOVASCULAR: S1, S2 muffled. RESPIRATION: Breath sounds diminished at the bases. A few scattered rhonchi. ABDOMEN: Soft, obese. Mild discomfort in the epigastrium. No mass palpable. No guarding. No rigidity. LEGS: No edema. No swelling. NERVOUS SYSTEM: Higher functions as mentioned earlier. Moves all 4 limbs. No focal motor or sensory deficit. LYMPHATICS: No lymph node palpable in neck, axillae or groin. SKIN: No ulcer, rash, bleeding. JOINTS: No active deforming arthropathy. LABS: CBC within normal limits. Sodium 136, potassium 3.8. Other labs are noted. ASSESSMENT: 1. Chest pain and abdominal pain for evaluation. Rule out coronary artery disease. Myocardial infarction ruled out. 2. Possible acute pancreatitis. 3. History of anxiety, depression, posttraumatic stress disorder. 4. History of THC. RECOMMENDATIONS AND DISCUSSION: In this 36-year-old gentleman who presented with multiple complex medical problems, we will treat the patient symptomatically. Cardiology consultation. Myocardial infarction has been ruled out. Possible stress test. I would also recommend repeat amylase and lipase. Will also order a CT scan of the abdomen and pelvis to complete the workup. MMODL / IJN: [id number] /
[2022-01-02] MEDS: HEPARIN SODIUM,PORCINE/PF 5,000 UNIT/0.5 ML SYRINGE SQ SCH ×2 (19:42→20:24)
--- NOTE | 2022-01-02 19:58 | CT ---
EXAMINATION TYPE: CT abdomen pelvis wo con DATE OF EXAM: 01/02/2022 COMPARISON: 12/30/2021 HISTORY: Pancreatitis. Upper abdominal pain with nausea. CT DLP: 1486.3 mGycm Automated exposure control for dose reduction was used. Images obtained from the diaphragm to the floor the pelvis with oral contrast only. The lung bases are clear. There is no pleural effusion. Heart size is normal. There is no pericardial effusion. There is diffuse fatty infiltration of the liver. Spleen is intact. Stomach is intact. The re is no evidence of pancreatic mass. Gallbladder somewhat contracted. There is calcified small galls tone. There is no adrenal mass. Kidneys have normal size. There is no hydronephrosis. Ureters are not dilat ed. There is no retroperitoneal adenopathy. Bladder is empty. There is no evidence of pelvic mass. Th ere is no inguinal hernia. The appendix appears normal. There is no mesenteric edema. There is no ascites or free air. There is no bowel obstruction. The lumbar vertebrae have normal alignment. There is no compression fracture. Bony pelvis is intact. The hip joints are intact. IMPRESSION: Fatty infiltration of the liver. No dilated ducts. Calcified gallstone. No evidence of pancreatitis. No change compared to recent exam.
[2022-01-03] MEDS: SODIUM CHLORIDE 0.9% 1,000 ML IV SCH ×2 (04:00→20:32)
[2022-01-03] MEDS: PANTOPRAZOLE 40 MG TABLET PO SCH ×2 (07:50→20:32)
[2022-01-03] MEDS: HEPARIN SODIUM,PORCINE/PF 5,000 UNIT/0.5 ML SYRINGE SQ SCH ×2 (07:50→20:49)
[2022-01-03] MEDS: HYDROmorphone 1 MG/ML 1 ML SYRINGE IVP PRN ×3 (08:06→23:19)
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
[2022-01-03 10:59] LABS: Basophils # (A) 0.02 X 10*3/uL (0.00-0.10); Basophils % (A) 0.3 %; Eosinophils # (A) 0.12 X 10*3/uL (0.04-0.35); Eosinophils % (A) 1.7 %; HCT 45.9 % (39.6-50.0); HGB 16.3 g/dL (13.0-17.0); Immature Grans, Automated 0.6 %; Lymphocytes # (A) 1.47 X 10*3/uL (0.90-5.00); Lymphocytes % (A) 20.9 %; MCH 30.6 pg (27.0-32.0); MCHC 35.5 g/dL (32.0-37.0); MCV 86.3 fL (80.0-97.0); Mean Platelet Volume 9.6 fL (9.5-12.2); Monocytes # (A) 0.72 X 10*3/uL (0.20-1.00); Monocytes % (A) 10.3 %; NRBC Per 100 WBC 0 /100 WBCS (0.0-0.0); Neutrophils # (A) 4.65 X 10*3/uL (1.80-7.70); Neutrophils % (A) 66.2 %; Platelet Count 188 X 10*3/uL (140-440); RBC 5.32 X 10*6/uL (4.40-5.60); RDW 12.8 % (11.5-14.5); WBC 7.02 X 10*3/uL (4.50-10.00)
[2022-01-03 11:19] LABS: African American GFR (CKD) 89.6 (60.0-200.0); Albumin 4.5 g/dL (3.8-4.9); Albumin/Globulin Ratio 2.14 (1.60-3.17); Anion Gap 14.1 mmol/L (10.00-18.00); BUN/Creat Ratio 10.08 Ratio (12.00-20.00); Blood Urea Nitrogen 12.1 mg/dL (9.0-27.0); Calcium 9.3 mg/dL (8.7-10.3); Carbon Dioxide 23.9 mmol/L (20.0-27.5); Globulin 2.1 g/dL (1.6-3.3); Non-African American GFR(CKD) 77.3 (60.0-200.0); Total Bilirubin 1.2 mg/dL (0.30-1.20); Total Protein 6.6 g/dL (6.2-8.2)
[2022-01-03] MEDS: HYDROcodone/APAP 5-325MG 1 EACH TAB PO PRN ×2 (12:35→20:50)
[2022-01-03 15:04] VITALS: RESP 18
--- NOTE | 2022-01-03 15:22 | PN ---
PROGRESS NOTE DATE OF SERVICE: 01/03/2022 This 36-year-old gentleman admitted with chest pain and abdominal discomfort also had a CT scan of the abdomen and pelvis which showed possibly calcified gallstones. The patient is still complaining of bloating. No chest pain. No palpitations at this time. PHYSICAL EXAMINATION: Pulse 62, blood pressure 138/94, respiration 18. Chest: Clear to auscultation Cardiovascular: S1, S2 normal. Abdomen: Soft. Mild diffuse discomfort. No guarding. No rigidity. Bowel sounds present. No ascites. LABS: CBC within normal limits. ALT 69. ASSESSMENT: 1. Abdominal pain, rule out coronary artery disease, myocardial infarction ruled out. 2. Rule out choledocholithiasis. 3. History of anxiety, depression, posttraumatic stress disorder. 4. Acute pancreatitis ruled out. RECOMMENDATIONS AND DISCUSSION: I recommend to continue current medications. Advance diet slowly. I would also recommend surgical consultation and ultrasound of the liver and gallbladder. Guarded prognosis. Closely follow with Cardiology. Further recommendations to follow. MMODL / IJN: [id number] /
--- NOTE | 2022-01-03 18:39 | ECHOF ---
Referral Reason:chest pain MEASUREMENTS -------- HEIGHT: 180.3 cm WEIGHT: 136.1 kg BP: RVIDd: 3.1 cm (< 3.3) IVSd: 1.3 cm (0.6 - 1.1) LVIDd: 4.1 cm (3.9 - 5.3) LVPWd: 1.1 cm (0.6 - 1.1) IVSs: 1.9 cm LVIDs: 2.6 cm LVPWs: 1.7 cm LA Diam: 3.0 cm (2.7 - 3.8) LAESV Index (A-L): 19.10 ml/m Ao Diam: 3.9 cm (2.0 - 3.7) AV Cusp: 2.7 cm (1.5 - 2.6) MV EXCURSION: 19.027 mm (> 18.000) MV EF SLOPE: 95 mm/s (70 - 150) EPSS: 0.6 cm MV E Judah: 0.60 m/s MV DecT: 299 ms MV A Judah: 0.85 m/s MV E/A Ratio: 0.71 FINDINGS -------- Sinus rhythm. This was a technically adequate study. The left ventricular size is normal. There is mild concentric left ventricular hypertrophy. Overa ll left ventricular systolic function is normal with, an EF between 55 - 60 %. The right ventricle is normal in size. The left atrium is normal in size. The right atrial size is normal. The aortic valve is trileaflet, and appears structurally normal. No aortic stenosis or regurgitation. The mitral valve is normal. There is trace mitral regurgitation. The tricuspid valve appears structurally normal. Trace tricuspid regurgitation present. Unable to estimate RVSP due to inadequate TR jet spectral doppler profile. Trace/mild (physiologic) pulmonic regurgitation. The aortic root is dilated measuring 3.9cm. IVC Not well visulized. There is no pericardial effusion. CONCLUSIONS -------- 1. There is mild concentric left ventricular hypertrophy. 2. Overall left ventricular systolic function is normal with, an EF between 55 - 60 %. 3. The aortic valve is trileaflet, and appears structurally normal. No aortic stenosis or regurgitati on. 4. There is trace mitral regurgitation. 5. Trace tricuspid regurgitation present. 6. Trace/mild (physiologic) pulmonic regurgitation. 7. The aortic root is dilated measuring 3.9cm. 8. There is no pericardial effusion. CREDIT OR LOANS OFFICER: KODY Nguyen
[2022-01-04] MEDS: SODIUM CHLORIDE 0.9% 1,000 ML IV SCH (03:06)
[2022-01-04 07:31] VITALS: BP 168/79; PULSE 84; TEMP 97.6
[2022-01-04] MEDS: HYDROcodone/APAP 5-325MG 1 EACH TAB PO PRN (07:52)
[2022-01-04] MEDS: HEPARIN SODIUM,PORCINE/PF 5,000 UNIT/0.5 ML SYRINGE SQ SCH (09:22)
[2022-01-04] MEDS: PANTOPRAZOLE 40 MG TABLET PO SCH (09:25)
--- NOTE | 2022-01-04 10:22 | P.PN ---
Subjective Progress Note Date: 01/04/22 HISTORY OF PRESENT ILLNESS: This is a 36 year old male with a past medical history significant for marijuana use. 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 We have been asked to see the patient in consultation for chest pain. Patient examined at the bedside. Patient states he has been having abdominal pain and chest pain for about 5 days. He reports the pain has been constant. He believes the pain is more intense in the abdomen versus the chest. He states the pain occasionally went into his shoulder blades. He reports nausea and vomiting for the past 5 days as well. He states the pain was not worse with deep inspiration or movement. He does have some epigastric tenderness this morning. He states the only thing that seemed to help his symptoms at all was taking a hot shower. He denies chest pain or pressure this morning. Patient was found to have a lipase of 524. Patient denies a family history of premature coronary artery disease. The patient states he smokes a sig nificant amount of marijuana daily. EKG reveals junctional rhythm/sinus mechanism. Telemetry this morning reveals sinus mechanism with a heart rate in the 70s. Chest CTA: Negative exam. No evidence for pulmonary embolism. Fatty liver. CT abdomen pelvis: Fatty infiltration of the liver. No dilated ducts. Calcified gallstone. No evidence of pancreatitis. No change compared to recent exam. Laboratory data: WBC 8.9. Hemoglobin 15.9. Platelet count 178. D-dimer 0.41. Sodium 137. Potassium 3.9. BUN 11. Creatinine 1.2. Troponin negative 3. Current home cardiac medications include none 01/04/2022 Patient examined this morning at the bedside. Patient denies chest pain or pressure. He denies shortness of breath. Patient reports mild nausea this morning but states he believes it is from not eating. Echocardiogram completed revealing ejection fraction 55-60%, trace mitral regurgitation, and trace tricuspid regurgitation. PHYSICAL EXAM: VITAL SIGNS: Reviewed. GENERAL: Well-developed in no acute distress. HEENT: Head is normocephalic. Pupils are equal, round. Sclerae anicteric. Mucous membranes of the mouth are moist. Neck supple. No JVD or thyromegaly LUNGS: Respirations even and unlabored. Lungs essentially clear to auscultation bilaterally. HEART: Regular rate and rhythm. S1 and S2 heard. ABDOMEN: Soft. Nondistended. Nontender. EXTREMITIES: Normal range of motion. No clubbing or cyanosis. Peripheral pulses intact. No lower extremity edema NEUROLOGIC: Awake and alert. Oriented x 3. ASSESSMENT: Chest pain, atypical, troponin negative x 3 Nausea, vomiting, abdominal pain Marijuana use Elevated lipase PLAN: Patient is currently stable from a cardiac perspective with no further inpatient recommendations We will sign off. Please reconsult if needed. Nurse practitioner note has been reviewed by physician. Signing provider agrees with the documented findings, assessment, and plan of care. Objective - Vital Signs Vital signs: Vital Signs Temp 97.6 F 01/04/22 07:30 Pulse 84 01/04/22 09:06 Resp 18 01/04/22 09:06 BP 168/79 01/04/22 07:30 Pulse Ox 99 01/04/22 07:30 Intake & Output 01/03/22 01/04/22 01/04/22 18:59 06:59 18:59 Intake Total 280 120 Balance 280 120 Intake: Oral 280 120 Other: Voiding Method Toilet # Voids 2 2 - Labs CBC & Chem 7: 01/03/22 08:03 01/03/22 08:03 Labs: Abnormal Lab Results - Last 24 Hours (Table) 01/03/22 Range/Units 08:03 BUN/Creatinine Ratio 10.08 L (12.00-20.00) Ratio ALT 69 H (10-49) U/L
--- NOTE | 2022-01-05 13:42 | P.DS ---
Providers Date of admission: 01/01/22 18:30 Expected date of discharge: 01/04/22 Attending physician: Riya Melendez Primary care physician: Franco Irizarry Hospital Course: Final diagnosis Abdominal pain, ruled out coronary artery disease, myocardial infarction ruled out Rule out coital cholelithiasis next line history of anxiety, depression, posttraumatic stress disorder Acute pancreatitis ruled out GI prophylaxis DVT prophylaxis Full code Discharge disposition Patient is being discharged in a stable condition with guarded prognosis to home. Patient will follow-up with Dr. Irizarry upon discharge. Patient will continue with Protonix on discharge and encouraged to follow a heart healthy diet. Patient will also follow-up with cardiology for possible outpatient stress testing, GI Dr. Garcia, and general surgery Dr. Jimenez in the outpatient setting. Total time taken is greater than 35 minutes. Hospital course This is a 36-year-old male who was recently admitted with chest pain and abdominal discomfort also had a CT of the abdomen and pelvis which showed possibly calcified gallstones and was being closely monitored. Patient continued with feelings of bloating and recommend outpatient follow-up with general surgery along with GI and cardiology for possible stress testing. Patient's abdominal pain has improved and denies any chest pain and is asking for advancement in diet. Patient reported to tolerating diet with no reports of nausea or vomiting or abdominal pain noted. Patient is extremely eager to go home today. Currently no reports of chest pain, shortness of breath, or palpitations. Patient is afebrile. No reports of nausea or vomiting and patient is tolerating diet. Patient will be discharged home today and instructed to follow-up with primary care provider this week. Guarded prognosis. On exam vital signs are stable. Cardio S1, S2 are muffled. Respiratory shows diminished breath sounds at the bases with no wheezing or rhonchi noted. Abdomen is soft, obese, and nontender. Nervous system shows no focal deficits. Please refer to medication reconciliation sheet for a list of medications. The impression and plan of care has been dictated by nurse practitioner Daisy Romero as directed. MD Allie I have performed a history and examination and MDM of this patient, discussed the same with the dictator, and agree with the dictator's assessment and plan as written ,documented as a scribe. I have performed more than 50% of the visit. Any additional findings or plans will be noted. Patient Condition at Discharge: Stable Plan - Discharge Summary Discharge Rx Participant: No New Discharge Prescriptions: New Pantoprazole [Protonix] 40 mg PO AC-BID 30 Days #60 tab Discharge Medication List Pantoprazole [Protonix] 40 mg PO AC-BID 30 Days #60 tab 01/04/22 [Rx] Follow up Appointment(s)/Referral(s): Franco Irizarry MD [Primary Care Provider] - 1-2 days Denisse Garcia MD [STAFF PHYSICIAN] - 1 Week Los Jimenez MD [STAFF PHYSICIAN] - 1 Week Ambulatory/Diagnostic Orders: Complete Blood Count w/diff [LAB.AMB] Time Frame: 3 Days, Location: None Selected Activity/Diet/Wound Care/Special Instructions: Activity Limited until follow-up Follow-up with primary care provider on discharge Follow-up with GI outpatient for further testing and possible MR or ERCP Follow-up with general surgery in one week for possible further testing Recommend repeat labs of CBC and BMP in 2-3 days Continue current diet and avoid carbonated beverages Follow-up with cardiology outpatient for possible stress testing Discharge Disposition: HOME SELF-CARE
== END 2022-01-04 12:46 | disposition home or self-care (01) ==
LOC: EC 14:38 → 6NMEDSUR 18:30
PROVIDERS: ADMIT Hospitalist; ATTEND Hospitalist
DX: R07.89 Other chest pain (principal); R10.13 Epigastric pain; R11.2 Nausea with vomiting, unspecified; K76.0 Fatty (change of) liver, not elsewhere classified; F12.90 Cannabis use, unspecified, uncomplicated; R06.02 Shortness of breath; E78.41 Elevated Lipoprotein(a); R14.0 Abdominal distension (gaseous); G89.29 Other chronic pain; M51.26 Other intervertebral disc displacement, lumbar region; R61 Generalized hyperhidrosis; R20.0 Anesthesia of skin; F43.10 Post-traumatic stress disorder, unspecified; F32.A Depression, unspecified; F41.9 Anxiety disorder, unspecified; Z20.822 Contact with and (suspected) exposure to COVID-19; Z79.899 Other long term (current) drug therapy; Z90.49 Acquired absence of other specified parts of digestive tract; Z87.81 Personal history of (healed) traumatic fracture; Z82.49 Family history of ischemic heart disease and other diseases of the circulatory system
CPT/HCPCS: 96376 ×4; 96361 ×5; 96372; 96374; 96375; 99285; 36415; 93005; 93306; 85379; 80053 ×2; 80048; 82150; 83690 ×2; 83735; 84484 ×2; 85025 ×3; 85610; 85730; 87635; 71275; 74176; G0378 ×4; J2405 ×2; J1170 ×3; C9113 ×2; Q9967; J1644

== ENCOUNTER 2022-01-08 07:04 | Emergency (ER) | payer OTHER ==
[2022-01-08 07:12] VITALS: RESP 18; TEMP 98
[2022-01-08] MEDS ORDERED: METOCLOPRAMIDE 5 MG/ML 2 ML VIAL IVP STA (07:24)
[2022-01-08] MEDS ORDERED: MORPHINE SULFATE 4 MG/ML SYRINGE IV STA (07:24)
[2022-01-08] MEDS ORDERED: SODIUM CHLORIDE 0.9% 1,000 ML IV STA (07:24)
[2022-01-08] MEDS ORDERED: MAG HYDROX/AL HYDROX/SIMETH 30 ML, HYOSCYAMINE ELIXIR 10 ML, LIDOCAINE VISCOUS 2% 10 ML PO STA ×3 (07:25)
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
[2022-01-08 08:02] LABS: Basophils % (A) 1 %; Eosinophils # (A) 0.1 k/uL (0-0.7); Eosinophils % (A) 2 %; HCT 41.2 % (39.0-53.0); HGB 14.9 gm/dL (13.0-17.5); Hyperchromasia Slight; Lymphocytes # (A) 1.5 k/uL (1.0-4.8); Lymphocytes % (A) 25 %; MCH 31.6 pg (25.0-35.0); MCHC 36.1 g/dL (31.0-37.0); MCV 87.6 fL (80.0-100.0); Mean Platelet Volume 7.1; Monocytes # (A) 0.5 k/uL (0-1.0); Monocytes % (A) 9 %; Neutrophils # (A) 3.5 k/uL (1.3-7.7); Neutrophils % (A) 60 %; Platelet Count 185 k/uL (150-450); RDW 12.8 % (11.5-15.5); WBC 5.7 k/uL (3.8-10.6)
[2022-01-08 08:11] LABS: Albumin 4.3 g/dL (3.5-5.0); Calcium 9.8 mg/dL (8.4-10.2); Potassium 3.4 mmol/L (3.5-5.1); Total Bilirubin 1.2 mg/dL (0.2-1.3); Total Protein 6.7 g/dL (6.3-8.2)
[2022-01-08 08:22] LABS: Amorphous Sediment,Urine Rare /hpf; Appearance,Urine Cloudy (Clear); Bacteria,Urine Occasional /hpf; Bilirubin,Urine 1+ (Negative); Blood,Urine Negative (Negative); Color,Urine Yellow; Glucose,Urine (UA) Negative (Negative); Ketones,Urine 1+ (Negative); Leukocyte Esterase,Urine Negative (Negative); Mucus,Urine Many /hpf; Nitrite,Urine Negative (Negative); PH, Urine 5.5 (5.0-8.0); Protein,Urine 1+ (Negative); RBC,Urine 1 /hpf (0-5); Specific Gravity,Urine 1.029 (1.001-1.035); WBC,Urine 2 /hpf (0-5)
[2022-01-08 08:23] LABS: Partial Thromboplastin Time 24.7 sec (22.0-30.0)
[2022-01-08 08:58] VITALS: BP 132/78; PULSE 80
== END 2022-01-08 08:58 | disposition home or self-care (01) ==
LOC: EC 07:04
DX: R10.9 Unspecified abdominal pain (principal); F32.A Depression, unspecified; F41.9 Anxiety disorder, unspecified; F43.10 Post-traumatic stress disorder, unspecified; Z72.89 Other problems related to lifestyle
CPT/HCPCS: 36415; 80053; 82150; 83605; 83690; 85025; 85610; 85730; 81001; 99284; 96374; 96375; J2270; J2765

== ENCOUNTER 2022-01-23 12:34 | Emergency (ER) | payer OTHER ==
[2022-01-23] MEDS ORDERED: SODIUM CHLORIDE 0.9% 500 ML 500 ML IV STA (12:49)
[2022-01-23] MEDS ORDERED: SODIUM CHLORIDE 0.9% 1,000 ML IV STA (12:49)
[2022-01-23] MEDS ORDERED: HYDROmorphone 0.5 MG/0.5 ML SYRINGE IVP STA (12:49)
[2022-01-23 13:09] LABS: Basophils # (A) 0.1 k/uL (0-0.2); Basophils % (A) 1 %; Eosinophils # (A) 0.1 k/uL (0-0.7); Eosinophils % (A) 1 %; HCT 43.7 % (39.0-53.0); HGB 15.5 gm/dL (13.0-17.5); Lymphocytes # (A) 0.9 k/uL (1.0-4.8); Lymphocytes % (A) 15 %; MCH 31.5 pg (25.0-35.0); MCHC 35.4 g/dL (31.0-37.0); MCV 89.2 fL (80.0-100.0); Mean Platelet Volume 6.8; Monocytes # (A) 0.4 k/uL (0-1.0); Monocytes % (A) 7 %; Neutrophils # (A) 4.4 k/uL (1.3-7.7); Neutrophils % (A) 75 %; Platelet Count 176 k/uL (150-450); RDW 13.2 % (11.5-15.5); WBC 5.9 k/uL (3.8-10.6)
[2022-01-23 13:15] LABS: Appearance,Urine Clear (Clear); Bilirubin,Urine Negative (Negative); Blood,Urine Negative (Negative); Color,Urine Yellow; Glucose,Urine (UA) Negative (Negative); Ketones,Urine Negative (Negative); Leukocyte Esterase,Urine Negative (Negative); Nitrite,Urine Negative (Negative); PH, Urine 8.5 (5.0-8.0); Protein,Urine Trace (Negative); Urobilinogen,Urine <2.0 mg/dL (<2.0)
[2022-01-23 13:20] LABS: ALT 92 U/L (4-49); AST 51 U/L (17-59); African American GFR (CKD) >90 (>60 ml/min/1.73 sqM); Albumin 4.4 g/dL (3.5-5.0); Alkaline Phosphatase 47 U/L (38-126); Amylase 44 U/L (30-110); Anion Gap 7 mmol/L; Blood Urea Nitrogen 11 mg/dL (9-20); Calcium 9.3 mg/dL (8.4-10.2); Carbon Dioxide 26 mmol/L (22-30); Chloride 106 mmol/L (98-107); Glucose 99 mg/dL (74-99); Lipase 59 U/L (23-300); Non-African American GFR(CKD) >90 (>60 ml/min/1.73 sqM); Potassium 4.2 mmol/L (3.5-5.1); Sodium 139 mmol/L (137-145); Total Bilirubin 1.1 mg/dL (0.2-1.3); Total Protein 7.1 g/dL (6.3-8.2)
[2022-01-23] MEDS ORDERED: ORPHENADRINE 30 MG/ML 2 ML VIAL IVP STA (14:23)
[2022-01-23] MEDS ORDERED: HYDROmorphone 1 MG/ML 1 ML SYRINGE IVP STA (14:23)
[2022-01-23] MEDS ORDERED: PANTOPRAZOLE 40 MG/10 ML VIAL IVP STA (14:23)
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
[2022-01-23 14:50] VITALS: BP 161/98; PULSE 52; RESP 20; TEMP 98.1
[2022-01-23] MEDS ORDERED: MAGNESIUM CITRATE 296 ML BOTTLE PO STA (15:02)
== END 2022-01-23 15:10 | disposition home or self-care (01) ==
LOC: EC 12:34
DX: R10.13 Epigastric pain (principal); K21.9 Gastro-esophageal reflux disease without esophagitis; F41.9 Anxiety disorder, unspecified; F32.A Depression, unspecified; F43.10 Post-traumatic stress disorder, unspecified; Z90.49 Acquired absence of other specified parts of digestive tract
CPT/HCPCS: 99284; 96374; 96375 ×3; 96376; 96361 ×2; 36415; 80053; 82150; 83690; 85025; 81003; J2360; J1170 ×2; C9113; J1790

== ENCOUNTER 2022-01-24 08:41 | Day surgery (SDC) | payer OTHER ==
[2022-01-21 09:45] VITALS: BMI 40.0
[2022-01-24] MEDS ORDERED: LACTATED RINGERS 1,000 ML IV SCH (08:57)
[2022-01-24 09:09] VITALS: RESP 16; TEMP 97.1
[2022-01-24] MEDS ORDERED: MIDAZOLAM 2 MG/2 ML VIAL ONE (09:34)
[2022-01-24] MEDS ORDERED: LIDOCAINE 1% INJ 10MG/ML (20 ML MDV) ONE (09:34)
[2022-01-24] MEDS ORDERED: PROPOFOL 10 MG/ML 20 ML VIAL IV ONE (09:34)
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
--- NOTE | 2022-01-24 10:08 | P.OP ---
Date of Procedure: 01/24/22 Preoperative Diagnosis: GERD Postoperative Diagnosis: Antral gastritis Mild esophagitis Procedure(s) Performed: EGD Anesthesia: MAC Surgeon: Los Jimenez Pathology: other (Antrum, esophagus) Condition: stable Disposition: PACU Description of Procedure: The patient's placed on the endoscopy table in the lateral position. He received IV sedation. The gastroscope patient oropharynx passed in the esophagus and the stomach. Scope was then placed through the pylorus. First and second portion of the duodenum appeared normal. Scope was then brought back the antrum this is mildly inflamed. A biopsies performed. The scope was then retroflexed and the remainder of the stomach appeared normal. The GE junction was at 40 cm. The distal esophagus appeared minimally inflamed. There was a biopsy performed. There was no significant hiatal hernia. The proximal esophagus appeared normal. The scope was withdrawn for patient.
[2022-01-24 10:34] VITALS: BP 123/82; PULSE 87
== END 2022-01-24 10:55 | disposition home or self-care (01) ==
LOC: ORWHC2ENDO 08:41
PROVIDERS: ATTEND Surgery
DX: K29.50 Unspecified chronic gastritis without bleeding (principal); K21.00 Gastro-esophageal reflux disease with esophagitis, without bleeding; F41.9 Anxiety disorder, unspecified; F32.A Depression, unspecified; F43.10 Post-traumatic stress disorder, unspecified; G89.29 Other chronic pain; M54.50 Low back pain, unspecified; Z90.49 Acquired absence of other specified parts of digestive tract; Z79.899 Other long term (current) drug therapy
CPT/HCPCS: 88305; 43239; J2250; J2001; J2704

== ENCOUNTER 2022-11-28 09:06 | Emergency (ER) | payer OTHER ==
[2022-11-28 09:14] VITALS: RESP 18
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
[2022-11-28] MEDS ORDERED: KETOROLAC 15 MG/ML 1 ML VIAL IVP STA (10:31)
--- NOTE | 2022-11-28 10:41 | XR ---
EXAMINATION TYPE: XR chest 2V DATE OF EXAM: 11/28/2022 10:33 AM COMPARISON: Chest radiographs from 12/20/2017 TECHNIQUE: XR chest 2V Frontal and lateral views of the chest. CLINICAL INDICATION:Male, 37 years old with history of Chest Pain; FINDINGS: Lungs/Pleura: There is no evidence of pleural effusion, focal consolidation, or pneumothorax. Pulmonary vascularity: Unremarkable. Heart/mediastinum: Cardiomediastinal silhouette is unremarkable. Musculoskeletal: No acute osseous pathology. IMPRESSION: No acute cardiopulmonary disease/process.
[2022-11-28 10:51] LABS: Basophils % (A) 1 %; Eosinophils # (A) 0.1 k/uL (0-0.7); Eosinophils % (A) 2 %; HCT 44.5 % (39.0-53.0); Lymphocytes # (A) 1.1 k/uL (1.0-4.8); Lymphocytes % (A) 18 %; MCH 31.4 pg (25.0-35.0); MCHC 35.9 g/dL (31.0-37.0); MCV 87.4 fL (80.0-100.0); Mean Platelet Volume 7.2; Monocytes # (A) 0.5 k/uL (0-1.0); Monocytes % (A) 8 %; Neutrophils # (A) 4.3 k/uL (1.3-7.7); Neutrophils % (A) 69 %; Platelet Count 169 k/uL (150-450); RBC 5.09 m/uL (4.30-5.90); RDW 12.8 % (11.5-15.5); WBC 6.2 k/uL (3.8-10.6)
[2022-11-28 11:05] LABS: ALT 102 U/L (4-49); AST 50 U/L (17-59); African American GFR (CKD) >90 (>60 ml/min/1.73 sqM); Albumin 4.2 g/dL (3.5-5.0); Alkaline Phosphatase 56 U/L (38-126); Anion Gap 6 mmol/L; Blood Urea Nitrogen 16 mg/dL (9-20); Carbon Dioxide 26 mmol/L (22-30); Chloride 109 mmol/L (98-107); Glucose 109 mg/dL (74-99); Magnesium 2.1 mg/dL (1.6-2.3); Non-African American GFR(CKD) >90 (>60 ml/min/1.73 sqM); Potassium 4.5 mmol/L (3.5-5.1); Sodium 141 mmol/L (137-145); Total Bilirubin 0.5 mg/dL (0.2-1.3); Total Protein 6.7 g/dL (6.3-8.2)
[2022-11-28 11:09] LABS: INR 0.9 (<1.2); Partial Thromboplastin Time 25.4 sec (22.0-30.0); Prothrombin Time 9.7 sec (9.0-12.0)
[2022-11-28 12:02] VITALS: BP 127/81; PULSE 78; TEMP 98.1
== END 2022-11-28 12:02 | disposition home or self-care (01) ==
LOC: EC 09:06
DX: R07.89 Other chest pain (principal); F41.9 Anxiety disorder, unspecified; F32.A Depression, unspecified; F12.90 Cannabis use, unspecified, uncomplicated; Z20.822 Contact with and (suspected) exposure to COVID-19
CPT/HCPCS: 36415; 93005; 80053; 83735; 84484; 85025; 85610; 85730; 87636; 71046; 99285; 96374; J1885

== ENCOUNTER 2024-01-13 06:12 | Emergency (ER) | payer OTHER ==
[2024-01-13 06:54] VITALS: TEMP 98.4
[2024-01-13] MEDS: IBUPROFEN 600 MG TAB PO STA (07:11)
[2024-01-13] MEDS: ONDANSETRON ODT 4 MG TAB PO STA (07:11)
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
--- NOTE | 2024-01-13 07:49 | XR ---
EXAMINATION TYPE: XR chest 2V DATE OF EXAM: 01/13/2024 7:26 AM CLINICAL INDICATION:Male, 38 years old with history of sob; [facility] COMPARISON: 11/28/2022 TECHNIQUE: XR chest 2V. Frontal and lateral views of the chest.. FINDINGS: Exam is limited by patient body habitus. Lines/Tubes/Devices: No indwelling lines are seen. Heart/mediastinum: Heart size is normal. Mediastinum appears normal. Pulmonary vascularity: Not increased, Lungs/Pleura: There is no evidence of pleural effusion, focal consolidation, or pneumothorax. Musculoskeletal: No acute osseous abnormality demonstrated in the limits of the exam. Other findings: None. IMPRESSION: No acute findings, or significant interval change.
[2024-01-13] MEDS: IPRATROPIUM-ALBUTEROL 3 ML NEB INHALATION STA (07:52)
[2024-01-13 08:31] VITALS: BP 133/77; PULSE 85; RESP 18
== END 2024-01-13 08:28 | disposition home or self-care (01) ==
LOC: EC 06:12
DX: J10.1 Influenza due to other identified influenza virus with other respiratory manifestations (principal); J98.01 Acute bronchospasm; F12.90 Cannabis use, unspecified, uncomplicated; Z86.59 Personal history of other mental and behavioral disorders; Z20.822 Contact with and (suspected) exposure to COVID-19
CPT/HCPCS: 71046; 87636; 94640; 99284

== ENCOUNTER 2024-12-06 08:01 | Observation (INO) | payer OTHER ==
[2024-12-06] MEDS: KETOROLAC 15 MG/ML 1 ML VIAL IVP STA ×2 (08:18→10:00)
[2024-12-06] MEDS: ONDANSETRON 4 MG/2 ML VIAL IVP STA ×2 (08:19→10:00)
[2024-12-06] MEDS: SODIUM CHLORIDE 0.9% 1,000 ML IV STA (08:19)
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
[2024-12-06] MEDS: HYDROmorphone 1 MG/ML 1 ML SYRINGE IVP STA (08:23)
[2024-12-06 08:29] LABS: Basophils % (A) 0 %; Eosinophils # (A) 0.2 k/uL (0-0.7); Eosinophils % (A) 2 %; HCT 50.1 % (39.0-53.0); HGB 17.6 gm/dL (13.0-17.5); Lymphocytes # (A) 2.2 k/uL (1.0-4.8); Lymphocytes % (A) 23 %; MCH 31.3 pg (25.0-35.0); MCHC 35.2 g/dL (31.0-37.0); MCV 89.2 fL (80.0-100.0); Mean Platelet Volume 6.8; Monocytes # (A) 0.6 k/uL (0-1.0); Monocytes % (A) 6 %; Neutrophils # (A) 6.3 k/uL (1.3-7.7); Neutrophils % (A) 66 %; Platelet Count 197 k/uL (150-450); RBC 5.62 m/uL (4.30-5.90); RDW 12.8 % (11.5-15.5); WBC 9.5 k/uL (3.8-10.6)
[2024-12-06 08:40] LABS: ALT 50 U/L (4-49); AST 31 U/L (17-59); African American GFR (CKD) 75 (>60 ml/min/1.73 sqM); Albumin 4.7 g/dL (3.5-5.0); Alkaline Phosphatase 63 U/L (38-126); Amylase 80 U/L (30-110); Anion Gap 12 mmol/L; Blood Urea Nitrogen 16 mg/dL (9-20); Calcium 10.2 mg/dL (8.4-10.2); Carbon Dioxide 25 mmol/L (22-30); Chloride 105 mmol/L (98-107); Glucose 128 mg/dL (74-99); Lipase 711 U/L (23-300); Non-African American GFR(CKD) 65 (>60 ml/min/1.73 sqM); Potassium 3.9 mmol/L (3.5-5.1); Sodium 142 mmol/L (137-145); Total Bilirubin 0.8 mg/dL (0.2-1.3); Total Protein 7.2 g/dL (6.3-8.2)
[2024-12-06] MEDS: HYDROmorphone 0.5 MG/0.5 ML SYRINGE IVP STA (09:23)
--- NOTE | 2024-12-06 09:24 | CT ---
EXAMINATION TYPE: CT abdomen pelvis w con DATE OF EXAM: 12/06/2024 9:06 AM COMPARISON: 01/02/2022 CLINICAL INDICATION: Male, 39 years old with history of abd pain; Rt flank radiating around RLQ pain TECHNIQUE: Axial CT abdomen pelvis w con;Sagittal and coronal reformats were created on a separate w orkstation. Contrast used:100 mL of Isovue 300 with IV Contrast, (none if empty) Oral contrast used: without Oral Contrast (none if empty) CT DLP: 2253.5 mGycm, Automated exposure control for dose reduction was used. FINDINGS: LOWER CHEST: Unremarkable ABDOMEN LIVER: Diffusely hypoattenuating parenchyma. GALLBLADDER AND BILE DUCTS: Unremarkable. PANCREAS: Unremarkable. SPLEEN: Unremarkable. ADRENAL GLANDS: Unremarkable. KIDNEYS AND URETERS: Mild left hydronephrosis secondary obstructing 2 mm focus at the ureteropelvic j unction series 201 image 54. Nonobstructing right 1 mm calculus. PELVIS BLADDER: No evidence for wall thickening or mass given limitations of exam. REPRODUCTIVE: Unremarkable. ABDOMEN & PELVIS STOMACH AND BOWEL: No evidence of bowel obstruction. The appendix is normal. PERITONEUM/RETROPERITONEUM: No evidence of pneumoperitoneum or free fluid. VASCULATURE: No evidence of aortic aneurysm. MUSCULOSKELETAL: No acute osseous abnormalities LYMPH NODES: No gross evidence for lymphadenopathy. SOFT TISSUE/ABDOMINAL WALL: Fatty changes to left inguinal canal. IMPRESSION: 1. Mild left hydronephrosis secondary obstructing 2 mm focus at the ureteropelvic junction. Nonobstr ucting right 1 mm focus. No right hydronephrosis.. Correlate with laterality of symptomatology given patient reported symptoms was on the right. 2. Hepatic steatosis. 3. Normal appendix. [facility], , 12/06/2024 9:22 AM
[2024-12-06 09:49] LABS: Appearance,Urine Clear (Clear); Bilirubin,Urine Negative (Negative); Blood,Urine Negative (Negative); Color,Urine Colorless; Glucose,Urine (UA) Negative (Negative); Ketones,Urine 1+ (Negative); Leukocyte Esterase,Urine Negative (Negative); Nitrite,Urine Negative (Negative); Protein,Urine Negative (Negative); Specific Gravity,Urine 1.038 (1.001-1.035); Urobilinogen,Urine <2.0 mg/dL (<2.0)
[2024-12-06] MEDS: SODIUM CHLORIDE 0.9% 500 ML 500 ML IV ONE (10:23)
[2024-12-06] MEDS ORDERED: NALOXONE 0.4 MG/ML 1 ML VIAL IV PRN (12:02)
[2024-12-06] MEDS ORDERED: ACETAMINOPHEN TAB 325 MG TAB PO PRN (12:08)
[2024-12-06] MEDS: HYDROcodone/APAP 5-325MG 1 EACH TAB PO PRN (12:30)
[2024-12-06] MEDS: SODIUM CHLORIDE 0.9% 1,000 ML IV SCH (12:31)
[2024-12-06] MEDS: HYDROmorphone 1 MG/ML 1 ML SYRINGE IVP PRN (13:42)
[2024-12-06] MEDS: ONDANSETRON 4 MG/2 ML VIAL IVP PRN (17:39)
[2024-12-06 19:17] VITALS: RESP 16
[2024-12-06] MEDS: polyethylene glycoL 3350 17 GM POWD.PACK PO SCH (21:46)
[2024-12-07 03:04] VITALS: PULSE 75
[2024-12-07 07:47] VITALS: BP 104/72; TEMP 98.4
[2024-12-07] MEDS: PANTOPRAZOLE 40 MG TABLET PO SCH (08:56)
[2024-12-07] MEDS: SENNOSIDES-DOCUSATE SODIUM 1 EACH TAB PO SCH (08:56)
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
== END 2024-12-07 11:33 | disposition left against medical advice (07) ==
LOC: EC 08:01 → 5NMEDONC 13:07
PROVIDERS: ADMIT Internal Medicine; ATTEND Internal Medicine
DX: N20.1 Calculus of ureter (principal); Z90.49 Acquired absence of other specified parts of digestive tract
CPT/HCPCS: 96376 ×3; 96361; 96374; 96375; 99285; 36415; 80053; 82150; 83605; 83690; 85025; 81003; 74177; G0378 ×2; J2405 ×2; J1171 ×3; J1885; Q9967

== ENCOUNTER 2024-12-08 08:22 | Inpatient (IN) | payer OTHER ==
[2024-12-08] MEDS: HYDROmorphone 1 MG/ML 1 ML SYRINGE IVP STA ×2 (08:56→10:55)
[2024-12-08] MEDS: KETOROLAC 15 MG/ML 1 ML VIAL IVP STA ×2 (08:57→12:57)
[2024-12-08] MEDS: ONDANSETRON 4 MG/2 ML VIAL IVP STA (08:57)
[2024-12-08] MEDS: SODIUM CHLORIDE 0.9% 1,000 ML IV ONE ×2 (09:01→10:07)
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
--- NOTE | 2024-12-08 09:22 | CT ---
EXAMINATION TYPE: CT abdomen pelvis wo con DATE OF EXAM: 12/08/2024 9:14 AM COMPARISON: CT abdomen pelvis most recent from 12/06/2024 CLINICAL INDICATION: Male, 39 years old with history of abdominal pain; Renal stone. Severe abdominal pain and sweating. TECHNIQUE: Axial CT abdomen pelvis wo con;Sagittal and coronal reformats were created on a separate workstation. Contrast used: mL of , (none if empty) Oral contrast used: without Oral Contrast (none if empty) CT DLP: 1370.4 mGycm, Automated exposure control for dose reduction was used. FINDINGS: LOWER CHEST: Unremarkable ABDOMEN LIVER: Diffusely hypoattenuating parenchyma. GALLBLADDER AND BILE DUCTS: Layering increased density within the lumen consistent with gallstones ar e present. PANCREAS: Unremarkable. SPLEEN: Unremarkable. ADRENAL GLANDS: Unremarkable. KIDNEYS AND URETERS: Persistent obstructing calculus in the left distal ureter measuring up to 2 mm w ith dilation of the left collecting system with excreted IV contrast from 12/06/2024 exam. The calculu s has migrated anteriorly up to 17 cm. No excreted contrast within the right collecting system. Right anterior renal cortical cyst. PELVIS BLADDER: No evidence for wall thickening or mass given limitations of exam. REPRODUCTIVE: Unremarkable. ABDOMEN & PELVIS STOMACH AND BOWEL: No evidence of bowel obstruction. Next is normal. PERITONEUM/RETROPERITONEUM: No evidence of pneumoperitoneum or free fluid. VASCULATURE: No evidence of aortic aneurysm. MUSCULOSKELETAL: No acute osseous abnormalities LYMPH NODES: No gross evidence for lymphadenopathy. SOFT TISSUE/ABDOMINAL WALL: Fat-containing umbilical hernia. IMPRESSION: 1. Persistent obstructing left ureteral calculus now 17 cm more inferiorly than compared to 5. Hydration recommended to facilitate pushing the calculus into the bladder and out the urethra. 2. Hepatic steatosis. 3. Cholelithiasis. [facility], , 12/08/2024 9:19 AM
[2024-12-08 09:23] LABS: ALT 40 U/L (4-49); AST 34 U/L (17-59); African American GFR (CKD) 56 (>60 ml/min/1.73 sqM); Albumin 4.3 g/dL (3.5-5.0); Alkaline Phosphatase 55 U/L (38-126); Anion Gap 13 mmol/L; Blood Urea Nitrogen 20 mg/dL (9-20); Calcium 9.3 mg/dL (8.4-10.2); Carbon Dioxide 24 mmol/L (22-30); Chloride 99 mmol/L (98-107); Glucose 105 mg/dL (74-99); Lipase 101 U/L (23-300); Non-African American GFR(CKD) 48 (>60 ml/min/1.73 sqM); Sodium 136 mmol/L (137-145); Total Bilirubin 1.7 mg/dL (0.2-1.3); Total Protein 6.6 g/dL (6.3-8.2)
[2024-12-08 09:28] LABS: Basophils % (A) 0 %; Eosinophils % (A) 0 %; HCT 45.5 % (39.0-53.0); HGB 15.8 gm/dL (13.0-17.5); Lymphocytes # (A) 1.1 k/uL (1.0-4.8); Lymphocytes % (A) 9 %; MCH 30.9 pg (25.0-35.0); MCHC 34.8 g/dL (31.0-37.0); Mean Platelet Volume 7.1; Monocytes # (A) 0.8 k/uL (0-1.0); Monocytes % (A) 7 %; Neutrophils # (A) 9.4 k/uL (1.3-7.7); Neutrophils % (A) 82 %; Platelet Count 155 k/uL (150-450); RBC 5.11 m/uL (4.30-5.90); RDW 12.6 % (11.5-15.5); WBC 11.5 k/uL (3.8-10.6)
[2024-12-08 10:30] LABS: Amorphous Sediment,Urine Rare /hpf; Appearance,Urine Clear (Clear); Bilirubin,Urine Negative (Negative); Blood,Urine Negative (Negative); Color,Urine Yellow; Glucose,Urine (UA) Negative (Negative); Ketones,Urine 4+ (Negative); Leukocyte Esterase,Urine Negative (Negative); Mucus,Urine Occasional /hpf; Nitrite,Urine Negative (Negative); PH, Urine 5.5 (5.0-8.0); Protein,Urine 1+ (Negative); Specific Gravity,Urine 1.036 (1.001-1.035); Squamous Epithelial Cell,Urine <1 /hpf (0-4); WBC,Urine 1 /hpf (0-5)
[2024-12-08] MEDS ORDERED: NALOXONE 0.4 MG/ML 1 ML VIAL IV PRN (13:45)
[2024-12-08] MEDS: SODIUM CHLORIDE 0.9% 1,000 ML IV SCH (13:57)
[2024-12-08] MEDS: TAMSULOSIN 0.4 MG CAP.ER.24H PO SCH (13:57)
[2024-12-08] MEDS: HYDROmorphone 1 MG/ML 1 ML SYRINGE IVP PRN (16:50)
[2024-12-09] MEDS: ONDANSETRON 4 MG/2 ML VIAL IVP PRN (06:40)
[2024-12-09] MEDS: KETOROLAC 15 MG/ML 1 ML VIAL IVP PRN (12:04)
[2024-12-09] MEDS: SODIUM CHLORIDE 0.9% 1,000 ML IV SCH (12:47)
[2024-12-09] MEDS ORDERED: LIDOCAINE 1% (10MG/ML) FOR IV START INTRADERMA PRN (16:47)
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
[2024-12-10 06:42] LABS: African American GFR (CKD) 64 (>60 ml/min/1.73 sqM); Anion Gap 5 mmol/L; Blood Urea Nitrogen 17 mg/dL (9-20); Calcium 8.1 mg/dL (8.4-10.2); Carbon Dioxide 26 mmol/L (22-30); Chloride 104 mmol/L (98-107); Glucose 84 mg/dL (74-99); Non-African American GFR(CKD) 55 (>60 ml/min/1.73 sqM); Potassium 3.9 mmol/L (3.5-5.1); Sodium 135 mmol/L (137-145)
[2024-12-10] MEDS ORDERED: droPERidol 5 MG/2 ML VIAL IVP PRN (07:00)
[2024-12-10] MEDS: polyethylene glycoL 3350 17 GM POWD.PACK PO SCH (10:10)
[2024-12-10] MEDS: IV FLUID CONTINUATION 1,000 ML IV ONE ×2 (14:44→17:22)
[2024-12-10] MEDS: ONDANSETRON 4 MG/2 ML VIAL IVP ONE (15:12)
[2024-12-10] MEDS: DEXAMETHASONE SOD PHOSPHATE 4 MG/ML 1 ML VIAL IV ONE (15:13)
[2024-12-10] MEDS ORDERED: NEOSTIGMINE 1 MG/ML 10 ML VIAL ONE (15:21)
[2024-12-10] MEDS ORDERED: MIDAZOLAM 2 MG/2 ML VIAL ONE (15:21)
[2024-12-10] MEDS ORDERED: fentaNYL (PF) 50 MCG/ML 2 ML AMP ONE (15:21)
[2024-12-10] MEDS ORDERED: SUCCINYLCHOLINE CHLORIDE 200 MG/10 ML VIAL IV ONE (15:21)
[2024-12-10] MEDS ORDERED: GLYCOPYRROLATE 0.2 MG/ML 2 ML VIAL ONE (15:21)
[2024-12-10] MEDS ORDERED: ROCURONIUM 10 MG/ML (5 ML VIAL) IV ONE (15:21)
[2024-12-10] MEDS ORDERED: LIDOCAINE 1% INJ 10MG/ML (20 ML MDV) ONE (15:21)
[2024-12-10] MEDS ORDERED: PROPOFOL 10 MG/ML 20 ML VIAL IV ONE (15:21)
[2024-12-10] MEDS ORDERED: IOPAMIDOL-370 100ML BTL MISCELLANE ONE (15:55)
[2024-12-10] MEDS: IOPAMIDOL-370 50ML BTL MISCELLANE ONE (15:55)
--- NOTE | 2024-12-10 16:37 | FL ---
EXAMINATION TYPE: FL urography retrograde DATE OF EXAM: 12/10/2024 COMPARISON: CT abdomen and pelvis 2 days earlier HISTORY: Left-sided nephrolithiasis. TECHNIQUE: Fluoroscopy. FINDINGS: Fluoroscopic guidance was provided during during retrograde urogram procedure with ureter stent insertion procedure performed by Dr. Syed. A total of 19 seconds of fluoroscopic time was ut ilized during the procedure and 4 spot images was acquired. Total dose area product (DAP) in uGy*m?, mGy*cm? (or similar): 0.56138. IMPRESSION: As Above. [facility], , 12/10/2024 4:35 PM
[2024-12-10] MEDS: HYDROmorphone 0.5 MG/0.5 ML SYRINGE IVP PRN (16:38)
[2024-12-10] MEDS: LACTATED RINGERS 1,000 ML IV SCH (17:21)
[2024-12-10] MEDS: ceFAZolin 3 GM in SODIUM CHLORIDE 0.9% 100 ML IVPB ONE (17:32)
--- NOTE | 2024-12-10 17:52 | P.OP ---
Date of Procedure: 12/10/24 Preoperative Diagnosis: Left ureteral calculus Postoperative Diagnosis: Same Procedure(s) Performed: Cystoscopy, left retrograde pyelogram, left ureteral balloon dilation, left ureteroscopy, removal of left ureteral calculus, left ureteral stent insertion Anesthesia: ELIANA Surgeon: Albino Syed Estimated Blood Loss (ml): 5 IV fluids (ml): 400 Pathology: other (Left ureteral calculus, sent for chemical analysis) Condition: stable Disposition: PACU Indications for Procedure: The patient is a 39-year-old white male with recent left renal colic due to a 2 mm left distal ureteral calculus. CT scan shows evidence of significant obstruction, and due to intractable symptoms he has elected to undergo ureteroscopic removal of the calculus. Operative Findings: Very narrowed left distal ureter, requiring balloon dilation. 2 mm left distal ureteral calculus, successfully removed. Description of Procedure: The patient was taken to the operating room and placed in the dorsolithotomy position, with legs supported in Arvind stirrups. The external genitalia was prepped and draped sterilely. The 30 lens was used to introduce the 21-Liberian Webb cystoscopic sheath through the urethra and into the bladder under direct vision. The prostatic urethra showed evidence of mild lateral lobe enlargement. The bladder was examined in its entirety. Both ureteral orifices were normal anatomic location and configuration. No tumors or foreign bodies were seen. A 10 [place]ian cone-tip catheter was introduced into the left ureteral orifice. The orifice was small and would barely accommodate the catheter tip. Contrast was injected, revealing narrowing of the distal 2 cm of the ureter. The calculus was seen just proximal to this as a filling defect. A 0.035 inch Glidewire was passed through the cystoscope. The left ureteral orifice was cannulated, and the Glidewire was slowly advanced. With some manipulation, it was possible to pass the tip of the Glidewire beyond the calculus and up to the left renal pelvis, where it coiled. Urine with old and dark blood drained alongside the Glidewire. A 15 Liberian, 4 cm balloon dilating catheter was then used to dilate the intramural portion of the ureter. The balloon was inflated to 19 KYE, but a "waist" persisted and the balloon. After several minutes, the balloon was deflated and the balloon dilating catheter was removed along with the cystoscope, leaving the Glidewire in place. The Webb semirigid ureteroscope was advanced into the bladder, and the left ureteral orifice was cannulated. The ureteroscope was slowly advanced up to the left proximal ureter under direct vision, but no calculi were seen. Pullout ureteroscopy was unremarkable, and the ureteroscope was removed. The cystoscope was replaced into the bladder, where a 2 mm calculus was identified and removed. It was saved and sent for chemical analysis. The Glidewire was then passed through the cystoscope. The left ureteral orifice was cannulated, the Glidewire was advanced up to the left renal pelvis. A 26 cm, 4.8 Liberian double-J ureteral stent was placed over the wire. Proper stent positioning was verified fluoroscopically and endoscopically. The bladder was emptied and the cystoscope removed. The string was secured to the patient's penis using a Tegaderm dressing. The patient tolerated the procedure well and was taken to the recovery room in stable condition. RAÚL LUA Report: Procedure Acuity: Urgent Stone Size and Location: 2 mm, left distal ureter Ureteral Dilation: Balloon Dilation Ureteral Access Sheath Used: No Stone Sent for Analysis: Yes All Stones/Fragments Were Removed: Yes Complications: No Preoperative Antibiotics Given: Yes Stent Placed: Yes If Stent Placed, Was String Left Attached: Yes If Stent Placed, When is it to be Removed: 1 week Discharge Medications: Tamsulosin
[2024-12-10 20:49] VITALS: RESP 16
--- NOTE | 2024-12-10 22:41 | HP ---
HISTORY AND PHYSICAL CHIEF COMPLAINT: Flank pain. HISTORY OF PRESENT ILLNESS: This gentleman presented to the emergency room with left-sided flank pain. He was determined to have a distal ureteral calculus. REVIEW OF SYSTEMS: He has had no fever, chills, nausea, vomiting, hematuria, etc. Past medical history, family history, personal and social histories are otherwise unremarkable and noncontributory. PHYSICAL EXAMINATION: VITAL SIGNS: Normal. HEAD, EARS, EYES, NOSE, MOUTH AND THROAT: Normal. CHEST: Clear. CARDIAC: Normal. ABDOMEN: Soft and nontender. He has some tenderness on the left flank. NEUROLOGICAL: He is intact. IMPRESSION: Left ureteral calculus. PLAN: 1. Bed rest. 2. IV fluids. 3. Analgesics. 4. Urology consult. FRANKLIN / CHASITY: [id number] /
--- NOTE | 2024-12-11 03:50 | PN ---
PROGRESS NOTE DATE OF SERVICE: 12/09/2024 CHIEF COMPLAINT: Ureteral calculus. HISTORY OF PRESENT ILLNESS: This gentleman is in considerable amount of discomfort. He is to be seen by Urology. PHYSICAL EXAM: CHEST: Clear. CARDIAC: Normal. ABDOMEN: Soft and protuberant. He is tender in the left flank. IMPRESSION: Left ureteral calculus. PLAN: Continue with analgesics and await any further recommendations from Urology. MMODL / IJN: [id number] /
--- NOTE | 2024-12-11 04:26 | PN ---
PROGRESS NOTE DATE OF SERVICE: 12/10/2024 CHIEF COMPLAINT: Left ureteral calculus. HISTORY OF PRESENT ILLNESS: This gentleman is still having pain and he is going down to the operating room for possible stone retrieval or stenting. PHYSICAL EXAM: VITAL SIGNS: Normal. CHEST: Clear. CARDIAC: Normal. ABDOMEN: Soft, nontender. IMPRESSION: Left ureteral calculus. PLAN: Surgery today. MMODL / JORDONN: [id number] /
[2024-12-11 07:37] VITALS: BP 136/89; PULSE 69; TEMP 98.3
--- NOTE | 2024-12-11 12:02 | P.PN ---
Subjective Progress Note Date: 12/11/24 Principal diagnosis: Left ureteral calculus The patient underwent ureteroscopic removal of his left ureteral calculus yesterday. This required balloon dilation of the left distal ureter. He continues to experience discomfort, which is improved in severity. He reports hematuria and was reassured that this is expected. Objective - Vital Signs Vital signs: Vital Signs Temp 98.3 F 12/11/24 07:00 Pulse 69 12/11/24 07:00 Resp 16 12/11/24 07:00 BP 136/89 12/11/24 07:00 Pulse Ox 96 12/11/24 07:00 FiO2 Intake & Output 12/10/24 12/11/24 12/11/24 18:59 06:59 18:59 Intake Total 800 Output Total 405 1925 Balance 395 -1925 Intake: IV 800 Output: Urine 400 1925 Estimated Blood Loss 5 Other: Voiding Method Toilet Toilet # Voids 2 - Constitutional General appearance: Present: average body habitus, cooperative, no acute distress - Psychiatric Psychiatric: Present: A&O x's 3 - Labs CBC & Chem 7: 12/08/24 09:04 12/10/24 05:51 Assessment and Plan (1) Ureterolithiasis Current Visit: Yes Status: Acute Code(s): N20.1 - CALCULUS OF URETER SNOMED Code(s): 38276010 Plan: The patient is urologically stable for discharge. I have sent prescriptions for tamsulosin and Toradol. He will follow-up on December 16 for stent removal.
--- NOTE | 2024-12-11 14:02 | P.DS ---
Providers Date of admission: 12/08/24 13:45 Expected date of discharge: 12/11/24 Attending physician: Nima Hernandez MD Consults: 12/09/24 10:00 Consult Physician Routine Consulting Provider: Franco Irizarry Consult Reason/Comments: medical [facility]ton Do you want consulting provider notified?: Already Contacted Primary care physician: Franco Irizarry - Discharge Diagnosis(es) (1) Ureterolithiasis Current Visit: Yes Status: Acute Hospital Course: The patient is a 39-year-old male admitted with intractable left renal colic due to a 2 mm left distal ureteral calculus. On December 10, 2024, he underwent ureteroscopic removal of his left ureteral calculus. This required balloon dilation of the left distal ureter. On the first postoperative day, he continued to experience discomfort which was improved in severity. He reported hematuria and was reassured that this is expected. Procedures: Cystoscopy, left retrograde pyelogram, left ureteral balloon dilation, left ureteroscopy, removal of left ureteral calculus, left ureteral stent insertion on 12/10/2024. Patient Condition at Discharge: Good Plan - Discharge Summary New Discharge Prescriptions: New HYDROcodone/APAP 5-325MG [[place] 5-325] 1 - 2 tab PO Q4HR PRN #6 tab PRN Reason: Pain Tamsulosin [Flomax] 0.4 mg PO DAILY #10 cap Ketorolac [Toradol] 10 mg PO Q6HR PRN #10 tab PRN Reason: Pain Discharge Medication List HYDROcodone/APAP 5-325MG [[place] 5-325] 1 - 2 tab PO Q4HR PRN #6 tab 12/11/24 [Rx] Ketorolac [Toradol] 10 mg PO Q6HR PRN #10 tab 12/11/24 [Rx] Tamsulosin [Flomax] 0.4 mg PO DAILY #10 cap 12/11/24 [Rx] Follow up Appointment(s)/Referral(s): Franco Irizarry MD [Primary Care Provider] - 1-2 days Albino Syed MD [STAFF PHYSICIAN] - 12/16/24 Activity/Diet/Wound Care/Special Instructions: Diet and activity as tolerated. Reassured patient that hematuria is normal and expected. Patient needs to be cautious not to pull on the string which is taped to his penis, which could pull out his stent. Discharge Disposition: HOME SELF-CARE
[2024-12-11] MEDS ORDERED: ETODOLAC 400 MG TAB PO SCH (21:00)
--- NOTE | 2024-12-12 02:50 | PN ---
PROGRESS NOTE DATE OF SERVICE: 12/11/2024 CHIEF COMPLAINT: Left ureteral calculus. HISTORY OF PRESENT ILLNESS: This gentleman is doing well. He is urinating frequently. Stone was removed and stent placed. He will probably go home today. PHYSICAL EXAMINATION: CHEST: Clear. CARDIAC: Normal. ABDOMEN: Soft and nontender. IMPRESSION: Left ureteral calculus-removed. PLAN: Probably home today. MMODL / IJN: [id number] /
== END 2024-12-11 15:10 | disposition home or self-care (01) | DRG 661 ==
LOC: EC 08:22 → OBSVTOIN 13:45 → 6NMEDSUR 13:45
PROVIDERS: ADMIT Urology; ATTEND Urology
PROC: BT1F1ZZ Fluoroscopy of Left Kidney, Ureter and Bladder using Low Osmolar Contrast (ICD-10-PCS; 2024-12-10)
PROC: 0T778DZ Dilation of Left Ureter with Intraluminal Device, Via Natural or Artificial Opening Endoscopic (ICD-10-PCS; principal; 2024-12-10 11:05)
DX: N13.2 Hydronephrosis with renal and ureteral calculous obstruction (principal); G89.29 Other chronic pain; M51.26 Other intervertebral disc displacement, lumbar region
CPT/HCPCS: 36415; 74176; 74420; 80048; 80053; 81001; 82365; 83690; 85025; 96361; 96374; 96375; 96376; 99285